=== PATIENT | male | born 1960 | race Caucasian/White ===

== ENCOUNTER → 2016-11-08 | Outpatient (CLI) | payer BC ==
--- NOTE | 2016-11-08 18:51 | CONS ---
DATE OF CONSULTATION: 11/08/2016 This patient is a 56-year-old gentleman who has been reevaluated in the sleep center for obstructive sleep apnea/hypopnea syndrome. HISTORY OF PRESENT ILLNESS/SLEEP-WAKE EVALUATION: Patient has a history of obstructive sleep apnea/hypopnea syndrome. Last time he was seen by me was in June of 2013. Patient continues to use his equipment every night. Sometimes while he using equipment he may have snoring. His usual sleep schedule on working days is from around 10 p.m. until 3:15 a.m. On weekends he sleeps until 7:30 a.m. No problem with falling asleep. He sometimes reads in bedroom. He usually sleeps on the back position. He wakes up from sleep 2 times, but no episodes of nocturia. During the day, patient sometimes may feel sleepy. [place] Sleepiness Scale is borderline at 8. He may take a nap around 4:30 p.m. Past medical history is positive for: 1. Hypertension. 2. Diabetes. 3. Hyperlipidemia. PAST SURGICAL HISTORY: Surgery for cleft palate in the past. MEDICATIONS: 1. Lisinopril hydrochlorothiazide. 2. Simvastatin. 3. Januvia. 4. Zetia. 5. Niacin. 6. Metformin. 7. Vitamin D supplement. ALLERGIES: PENICILLIN. REVIEW OF SYSTEMS: Basically negative except patient believes that he may sleep too short a time and needs to sleep more. No fevers. No double vision. No recent chest pain. No shortness of breath. No abdominal pain. No bleeding episodes. No blood in urine. No seizure episodes. SOCIAL HISTORY: Negative for smoking. Alcohol consumption occasional. FAMILY HISTORY: Hypertension, emphysema, sleep apnea, snoring, cancer, diabetes, during sleep. PHYSICAL EXAMINATION: A 56-year-old gentleman without distress. VITAL SIGNS: BP 147/82, HR 88, RR 16. Height 5 feet 7 inches. Weight 261. BMI 40.8. Neck 21 inches in circumference. Temperature 98.3. Oxygen desaturation at room air 96%. HEENT: PERRLA, EOMI. Evaluation of oropharynx showed tongue protrudes midline; extremely low position of soft palate. NECK: Supple. No JVD. Thyroid is not palpable. LUNGS: Clear to percussion and to auscultation. Good air exchange. No wheezing or rhonchi. HEART: S1, S2 regular. No murmurs, gallops or rubs. ABDOMEN: Obese. EXTREMITIES: No edema. CONTACT LENS BLOCKER AND CUTTER: Awake, alert, and oriented x3. Cranial nerves 2 to 7 intact. There is no fasciculation or atrophy noted. No focal deficits observed. I checked patient's CPAP unit. Usage for the last 6 months for more than 4 hours is 148 out of 180 nights. Average usage for that time is 5.1 hours, which is borderline but acceptable compliance. IMPRESSION: 1. Obstructive sleep apnea/hypopnea syndrome, controlled with CPAP. 2. Hypertension. 3. Obesity. 4. Status post tonsillectomy. 5. Hyperlipidemia. 6. Diabetes mellitus. 7. Status post cleft palate surgery in the past. PLAN: 1. Continue treatment with CPAP every night for the whole night. 2. Prescription for all necessary CPAP supplies, including mask, tube, filters. 3. Losing weight. Patient weighs 4 pounds more than during titration in 2013. 4. I reviewed results of the previous titration, and they are not fully satisfactory for me. Patient still has some snoring at the present time and still feels some sleepiness during the day. We will have to repeat CPAP titration. We will try to get the reading of AHI index from patient's CPAP unit. 5. Sleep hygiene with regular time in bed for at least 8 hours. 6. No driving if feeling any sleepiness. Thank you very much for allowing me to participate in the management of your patient Sincerely, Akbar Cameron MD, PhD, FAASM. Diplomat of [place] [employer], Sleep Medicine Board by [place] [employer] [place] [employer] Medicine Blasting Entry Specialist of [facility] [place]
== END | disposition home or self-care (01) ==
LOC: SLEEP 13:45
PROVIDERS: ATTEND Internal Medicine
DX: G47.33 Obstructive sleep apnea (adult) (pediatric) (principal); I10 Essential (primary) hypertension; E66.9 Obesity, unspecified; Z68.41 Body mass index [BMI] 40.0-44.9, adult; E78.5 Hyperlipidemia, unspecified; E11.9 Type 2 diabetes mellitus without complications; Z98.890 Other specified postprocedural states; Z88.0 Allergy status to penicillin; Z79.899 Other long term (current) drug therapy
CPT/HCPCS: 99211

== ENCOUNTER → 2017-11-07 | Outpatient (CLI) | payer BC ==
--- NOTE | 2017-11-07 15:03 | PN ---
PROGRESS NOTE FOLLOWUP STUDY: DATE OF SERVICE: 11/07/2017 A 57-year-old gentleman who has been followed in the Sleep Center for treatment of obstructive sleep apnea-hypopnea syndrome. Patient continued to use his CPAP equipment every night for the whole night. No snoring with the machine. No symptoms of excessive daytime sleepiness. [place] Sleepiness Scale is 9. Patient brought his machine, but he did not bring the cord, so I cannot check CPAP unit, but previously when I checked his machine, he showed very good compliance. CURRENT MEDICATIONS: Metformin, simvastatin, lisinopril, hydrochlorothiazide, Januvia, Zetia, vitamin D, niacin, baby aspirin, Aleve, cetirizine. PHYSICAL EXAM: Patient in no distress. BP 141/86, HR 74, RR 16, height 5, 7, weight 246, BMI 38.5, temperature 97.9, oxygen saturation at room air 97%. OROPHARYNX: Extremely low position of soft palate. ABDOMEN: Obese. Neck Supple, no JVD. Thyroid is not palpable. LUNGS Clear to percussion and to auscultation. Good air exchange. No wheezing or rhonchi. HEART S1, S2 regular. No murmurs, gallops, or rubs. EXTREMITIES No clubbing or cyanosis. PROJECT MANAGEMENT INSTRUCTOR Awake, alert, and oriented X3. Cranial nerves 2 to 7 intact. There is no fasciculation or atrophy. noted. No focal deficits observed. IMPRESSION: 1. Obstructive sleep apnea-hypopnea syndrome. Patient continue to use his equipment every night, benefitting from treatment. 2. Obesity. 3. Hypertension. 4. Diabetes mellitus. 5. Hyperlipidemia. 6. Status post tonsillectomy. 7. Status post cleft palate, surgical treatment in the past. PLAN: 1. Continue treatment with CPAP every night. 2. Losing weight. 3. Sleep hygiene with regular time in bed for at least 8 hours. 4. No driving if feeling sleepiness. 5. Prescription for all necessary CPAP supplies. Thank you very much for allowing me to participate in the management of your patient. Sincerely, Akbar Cameron MD, PhD, FAASM Diplomat of [place] [employer] Board of Internal Medicine Systems Analyst Engineer of [facility] [place] MMODL / IJN: [id number] /
== END | disposition home or self-care (01) ==
LOC: SLEEP 13:38
PROVIDERS: ATTEND Internal Medicine
DX: G47.33 Obstructive sleep apnea (adult) (pediatric) (principal); I10 Essential (primary) hypertension; E11.9 Type 2 diabetes mellitus without complications; E78.5 Hyperlipidemia, unspecified; E66.9 Obesity, unspecified; Z79.84 Long term (current) use of oral hypoglycemic drugs; Z79.899 Other long term (current) drug therapy; Z79.82 Long term (current) use of aspirin; Z99.89 Dependence on other enabling machines and devices; Z87.730 Personal history of (corrected) cleft lip and palate; Z90.89 Acquired absence of other organs; Z98.890 Other specified postprocedural states; Z68.38 Body mass index [BMI] 38.0-38.9, adult

== ENCOUNTER → 2018-04-07 | Outpatient (CLI) | payer BC ==
[2018-04-07 10:33] LABS: Anion Gap 9 mmol/L; Blood Urea Nitrogen 17 mg/dL (9-20); Carbon Dioxide 28 mmol/L (22-30); Chloride 102 mmol/L (98-107); Potassium 4.2 mmol/L (3.5-5.1); Sodium 139 mmol/L (137-145)
[2018-04-07 18:57] LABS: Hemoglobin A1C 6.2 % (4.0-6.0)
== END | disposition home or self-care (01) ==
LOC: LABWHC1 09:17
PROVIDERS: ATTEND Family Medicine
DX: E11.9 Type 2 diabetes mellitus without complications (principal); I10 Essential (primary) hypertension
CPT/HCPCS: 36415; 80051; 82565; 83036; 84520

== ENCOUNTER → 2018-05-01 | Outpatient (CLI) | payer BC ==
--- NOTE | 2018-05-01 14:52 | PN ---
PROGRESS NOTE DATE OF SERVICE: 05/01/2018 57-year-old gentleman who has been followed in Sleep Center for treatment of obstructive sleep apnea-hypopnea syndrome. The patient continued to use his CPAP equipment every night. Sometimes it is not good schedule for sleep because he starts his job early and he sleeps until 330 in the morning. He tried to go to bed at 9:00 pm but usually goes to bed around 10 or 11 pm. I checked his CPAP unit. CPAP pressure in the range of 5-16 on automatic regimen. The patient using it 26 out of 30 nights for more than 4 hours. Average usage 5.7 hours. [place] Sleepiness Scale today 6, which is in normal range. MEDICATIONS: Metformin, simvastatin, lisinopril, hydrochlorothiazide, Januvia, Zetia, vitamin D, Niacin, baby aspirin, Aleve, Sertraline. PHYSICAL EXAM: Patient in no distress. BP 146/89, HR 90, RR 16, height 67, weight 245.2, BMI 28.3, temperature 98.5. Weight is 1 pounds less than during last visit. Oropharynx: Extremely low position of soft palate. ABDOMEN: Obese. Neck Supple, no JVD. Thyroid is not palpable. LUNGS Clear to percussion and to auscultation. Good air exchange. No wheezing or rhonchi. HEART S1, S2 regular. No murmurs, gallops, or rubs. ABDOMEN: Obese. Soft and nontender. Bowel sounds are present. No organomegaly appreciated. EXTREMITIES No clubbing or cyanosis. POLLUTION CONTROL ENGINEER Awake, alert, and oriented X3. Cranial nerves 2 to 7 intact. There is no fasciculation or atrophy. noted. No focal deficits observed. IMPRESSION: 1. Obstructive sleep apnea-hypopnea syndrome. Patient demonstrated great compliance with treatment benefitting from treatment. 2. Obesity, BMI 38.3. 3. Hypertension. 4. Diabetes mellitus. 5. Hyperlipidemia. 6. Status post tonsillectomy. 7. 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 PLAN: 1. Continue treatment with CPAP every night for the whole night. 2. Replace CPAP unit to the new unit which will indicate apnea-hypopnea index. 3. Losing weight. 4. Sleep hygiene with regular time in bed for at least 8 hours. 5. No driving if feeling sleepiness. Thank you very much for allowing me to participate in management of your patient. Sincerely, Akbar Stefadu, MD, PhD, FAASM Diplomat of [employer] Board of Internal Medicine Chief Of Party of [facility] [place] MMKEELY / LILLIANA: [id number] /
== END | disposition home or self-care (01) ==
LOC: SLEEP 13:41
PROVIDERS: ATTEND Internal Medicine
DX: G47.33 Obstructive sleep apnea (adult) (pediatric) (principal); I10 Essential (primary) hypertension; E11.9 Type 2 diabetes mellitus without complications; E78.5 Hyperlipidemia, unspecified; Z99.89 Dependence on other enabling machines and devices; Z79.84 Long term (current) use of oral hypoglycemic drugs; Z79.899 Other long term (current) drug therapy; Z79.82 Long term (current) use of aspirin; Z79.1 Long term (current) use of non-steroidal anti-inflammatories (NSAID); E66.9 Obesity, unspecified; Z68.38 Body mass index [BMI] 38.0-38.9, adult; Z90.89 Acquired absence of other organs; Z87.730 Personal history of (corrected) cleft lip and palate; Z98.890 Other specified postprocedural states

== ENCOUNTER → 2018-07-05 | Outpatient (CLI) | payer BC ==
[2018-07-05 09:45] LABS: ALT 46 U/L (21-72); AST 35 U/L (17-59); Albumin 4.1 g/dL (3.5-5.0); Alkaline Phosphatase 42 U/L (38-126); Anion Gap 9 mmol/L; Blood Urea Nitrogen 14 mg/dL (9-20); Calcium 9.3 mg/dL (8.4-10.2); Carbon Dioxide 30 mmol/L (22-30); Chloride 101 mmol/L (98-107); Cholesterol 111 mg/dL (<200); Glucose 114 mg/dL (74-99); HDL Cholesterol 38 mg/dL (40-60); LDL Cholesterol,Calculated 53 mg/dL (0-99); Potassium 4.6 mmol/L (3.5-5.1); Sodium 140 mmol/L (137-145); Total Bilirubin 0.7 mg/dL (0.2-1.3); Total Protein 6.7 g/dL (6.3-8.2); Triglycerides 101 mg/dL (<150)
[2018-07-05 17:49] LABS: Hemoglobin A1C 6.1 % (4.0-6.0)
== END | disposition home or self-care (01) ==
LOC: LABWHC1 08:53
PROVIDERS: ATTEND Family Medicine
DX: E11.9 Type 2 diabetes mellitus without complications (principal); I10 Essential (primary) hypertension
CPT/HCPCS: 36415; 80053; 80061; 83036

== ENCOUNTER → 2018-09-04 | Outpatient (CLI) | payer BC ==
--- NOTE | 2018-09-04 15:10 | SFUN ---
SLEEP CENTER FOLLOW UP NOTE DATE OF SERVICE: 09/04/2018 A 57-year-old gentleman who has been followed in the Sleep Center for treatment of obstructive sleep apnea-hypopnea syndrome. Recently patient received his new CPAP unit. He likes his CPAP machine. He is able to use it every night for the whole night without significant problem, except sometimes he feels dryness in the mouth. I checked CPAP unit, range of the pressure 5-16 cm of water, most of the time pressure is 15.5 cm of water. Usage is every night and 25/30 nights more than 4 hours, average 5.5 hours per night. Leak is 14 L per minute, which is normal range for the full-face mask. Apnea-hypopnea index 4.6, which is normal range. Humidity at the range of 3 with a maximal option up to 8. [place] Sleepiness Scale today is 3. MEDICATIONS: Metformin, simvastatin, lisinopril, hydrochlorothiazide, Januvia, Zetia, vitamin D, Niacin, baby aspirin, Aleve, Sertraline. PHYSICAL EXAM: Patient in no distress. BP 121/71, HR 88, RR 16, weight 252, which is 7 pounds above the previous weight about 4 months ago, temperature 97.6, oxygen saturation room air 95%. OROPHARYNX: Extremely low position of soft palate. ABDOMEN: Obese. Neck Supple, no JVD. Thyroid is not palpable. LUNGS Clear to percussion and to auscultation. Good air exchange. No wheezing or rhonchi. HEART S1, S2 regular. No murmurs, gallops, or rubs. EXTREMITIES No clubbing or cyanosis. MEDICAL OFFICE WORKER Awake, alert, and oriented X3. Cranial nerves 2 to 7 intact. There is no fasciculation or atrophy. noted. No focal deficits observed. IMPRESSION: 1. Obstructive sleep apnea-hypopnea syndrome. Patient demonstrated great compliance with treatment benefitting from treatment. 2. Obesity. 3. Hypertension. 4. Diabetes mellitus. 5. Hyperlipidemia. 6. Status post tonsillectomy. 7. Status post surgical treatment for cleft palate in rotoprinter. PLAN: 1. Patient will continue to use CPAP equipment every night for the whole night. 2. I increased humidity up to level 5. 3. Losing weight. 4. Sleep hygiene with regular time in bed for at least 8 hours. 5. No driving if feeling any sleepiness. 6. Will maintain prescription for all necessary CPAP supplies including full-face mask, tube, filters. 7. Followup visit in 1 year or earlier if patient has any problems. Thank you very much for allowing me to participate in the management of your patient. Sincerely, Akbar Cameron MD, PhD, FAASM Diplomat of [place] [employer] Specialties [place] Board of Internal Medicine Information Manager of [facility] [place] MMODL / IJN: [id number] /
== END ==
LOC: SLEEP 13:32
PROVIDERS: ATTEND Internal Medicine
DX: G47.33 Obstructive sleep apnea (adult) (pediatric) (principal); E66.9 Obesity, unspecified; I10 Essential (primary) hypertension; E11.9 Type 2 diabetes mellitus without complications; E78.5 Hyperlipidemia, unspecified; Z90.89 Acquired absence of other organs; Z98.890 Other specified postprocedural states; Z99.89 Dependence on other enabling machines and devices; Z79.899 Other long term (current) drug therapy; Z79.84 Long term (current) use of oral hypoglycemic drugs; Z79.82 Long term (current) use of aspirin

== ENCOUNTER → 2018-11-10 | Outpatient (CLI) | payer BC ==
[2018-11-10 22:01] LABS: Potassium 3.7 mmol/L (3.5-5.5)
[2018-11-10 22:55] LABS: Hemoglobin A1C 6.7 % (4.0-6.0)
== END | disposition home or self-care (01) ==
LOC: LABWHC1 13:45
PROVIDERS: ATTEND Family Medicine
DX: I10 Essential (primary) hypertension (principal); Z79.899 Other long term (current) drug therapy
CPT/HCPCS: 36415; 80051; 82565; 83036; 84443; 84520; 85652

== ENCOUNTER → 2018-12-03 | Outpatient (CLI) | payer BC ==
[2018-12-03 11:24] LABS: Basophils # (A) 0.1 k/uL (0-0.2); Basophils % (A) 1 %; Eosinophils # (A) 0.1 k/uL (0-0.7); Eosinophils % (A) 1 %; HCT 46.3 % (39.0-53.0); HGB 15.2 gm/dL (13.0-17.5); Lymphocytes % (A) 26 %; MCH 29.8 pg (25.0-35.0); MCHC 32.8 g/dL (31.0-37.0); Monocytes # (A) 0.4 k/uL (0-1.0); Monocytes % (A) 5 %; Neutrophils # (A) 4.9 k/uL (1.3-7.7); Neutrophils % (A) 64 %; Platelet Count 216 k/uL (150-450); RBC 5.08 m/uL (4.30-5.90); RDW 13.7 % (11.5-15.5); WBC 7.6 k/uL (3.8-10.6)
[2018-12-03 11:26] LABS: INR 0.9 (<1.2); Prothrombin Time 9.6 sec (9.0-12.0)
[2018-12-03 11:42] LABS: Potassium 4.4 mmol/L (3.5-5.1)
== END | disposition home or self-care (01) ==
LOC: LABPAT 10:24
PROVIDERS: ATTEND Orthopaedic Surgery
DX: Z01.812 Encounter for preprocedural laboratory examination (principal); Z88.0 Allergy status to penicillin
CPT/HCPCS: 36415; 80051; 85025; 85610

== ENCOUNTER → 2018-12-05 | Outpatient (CLI) | payer BC ==
[~2018-12-05] MED LIST: REGADENOSON 0.4 MG/5 ML SYRINGE IV ONE
--- NOTE | 2018-12-05 11:36 | NM ---
EXAMINATION TYPE: NM stress lexiscan cardiolite DATE OF EXAM: 12/05/2018 COMPARISON: NONE HISTORY: Abnormal EKG TECHNIQUE: After the intravenous administration of 10.8 mCi Tc 99m Sestamibi - Cardiolite resting SP ECT images acquired 50 minutes post injection. The patient received 0.4mg Lexiscan, 25.4 mCi Tc 99m Sestamibi - Stress images obtained [address] injection FINDINGS: Review of stress and rest SPECT images demonstrates no distinct perfusion abnormality. Gated analysi s shows normal wall motion with an estimated left ventricular ejection fraction of 42 %. IMPRESSION: Ejection fraction is 42% correlate clinically No scintigraphic evidence for reversible ischemia.
--- NOTE | 2018-12-05 13:49 | EST ---
EXERCISE STRESS DATE OF SERVICE: 12/05/2018 AGE: 58 SEX: Male HT: 66" WT: 250 PROTOCOL: Lexiscan Cardiolite STAGE: DURATION OF EXERCISE: HEART RATE REST: 66 BLOOD PRESSURE REST: 139/85 MAXIMUM HEART RATE ACHIEVED: 103 MAXIMUM BLOOD PRESSURE: 150/77 85% MPHR: 138 100% MPHR: 162 METS: INDICATIONS: Abnormal EKG, pre-op. CLINICAL INFORMATION: STRESS DATA: Pre-testing physical examination showed heart rate of 66, pressure is 139/85 mmHg. Baseline EKG showed sinus mechanism. A 0.4 mg of Lexiscan given over 15 seconds. Max heart rate sdp074 beats per minute. Maximum pressure was 150/77 mmHg. Clinically the patient did not have any symptoms and the EKG did not show any significant ST or T-wave abnormalities concerning for ischemia. CONCLUSION: 1. Nondiagnostic electrocardiogram stress testing in response to Lexiscan. 2. Please follow up on the Cardiolite portion on separate report from radiology department. MMODL / IJN: [id number] /
== END | disposition home or self-care (01) ==
LOC: RADNMMAIN 07:55
PROVIDERS: ATTEND Family Medicine
DX: R94.31 Abnormal electrocardiogram [ECG] [EKG] (principal)
CPT/HCPCS: 93017; 78452; A9500; J2785

== ENCOUNTER → 2018-12-16 | Outpatient (CLI) | payer BC | END | disposition home or self-care (01) | LOC: LABPAT 11:52 | PROVIDERS: ATTEND Orthopaedic Surgery | DX: Z01.812 Encounter for preprocedural laboratory examination (principal); M16.11 Unilateral primary osteoarthritis, right hip | CPT/HCPCS: 87070 ==

== ENCOUNTER → 2018-12-17 | Outpatient (CLI) | payer BC ==
--- NOTE | 2018-12-18 09:40 | ECHOF ---
Referral Reason:I50.9 Low ejection fraction MEASUREMENTS -------- HEIGHT: 170.2 cm WEIGHT: 113.4 kg BP: RVIDd: 3.0 cm (< 3.3) IVSd: 1.5 cm (0.6 - 1.1) LVIDd: 4.3 cm (3.9 - 5.3) LVPWd: 1.3 cm (0.6 - 1.1) IVSs: 1.5 cm LVIDs: 3.5 cm LVPWs: 1.4 cm LAESV Index (A-L): 22.50 ml/m Ao Diam: 3.5 cm (2.0 - 3.7) AV Cusp: 2.5 cm (1.5 - 2.6) LA Diam: 3.3 cm (2.7 - 3.8) MV EXCURSION: 20.824 mm (> 18.000) MV EF SLOPE: 96 mm/s (70 - 150) EPSS: 0.3 cm MV E Chai: 0.62 m/s MV DecT: 309 ms MV A Chai: 0.59 m/s MV E/A Ratio: 1.06 RAP: 5.00 mmHg RVSP: 17.25 mmHg FINDINGS -------- Sinus rhythm. This was a technically adequate study. The left ventricular size is normal. There is moderate concentric left ventricular hypertrophy. O verall left ventricular systolic function is normal with, an EF between 55 - 60 %. The right ventricle is normal in size. The left atrial size is normal. The right atrial size is normal. The aortic valve is trileaflet, and appears structurally normal. No aortic stenosis or regurgitation. Mild mitral annular calcification present. Mild mitral regurgitation is present. Mild tricuspid regurgitation present. There is no evidence of pulmonary hypertension. The right v entricular systolic pressure, as measured by Doppler, is 17.25mmHg. Trace/mild (physiologic) pulmonic regurgitation. The aortic root size is normal. There is no pericardial effusion. CONCLUSIONS -------- 1. The left ventricular size is normal. 2. There is moderate concentric left ventricular hypertrophy. 3. Overall left ventricular systolic function is normal with, an EF between 55 - 60 %. 4. The right ventricle is normal in size. 5. The left atrial size is normal. 6. The right atrial size is normal. 7. The aortic valve is trileaflet, and appears structurally normal. No aortic stenosis or regurgitati on. 8. Mild mitral annular calcification present. 9. Mild mitral regurgitation is present. 10. Mild tricuspid regurgitation present. 11. There is no evidence of pulmonary hypertension. 12. The right ventricular systolic pressure, as measured by Doppler, is 17.25mmHg. 13. Trace/mild (physiologic) pulmonic regurgitation. 14. The aortic root size is normal. 15. There is no pericardial effusion. ANATOMY AND PHYSIOLOGY INSTRUCTOR: Poonam Chamorro RDCS
== END | disposition home or self-care (01) ==
LOC: RADECHMAIN 13:38
PROVIDERS: ATTEND Family Medicine
DX: I08.1 Rheumatic disorders of both mitral and tricuspid valves (principal); I50.20 Unspecified systolic (congestive) heart failure
CPT/HCPCS: 93306

== ENCOUNTER 2018-12-29 08:45 | Inpatient (IN) | payer BC ==
[2018-12-23 15:57] VITALS: BMI 40.3
--- NOTE | 2018-12-28 18:10 | HP ---
HISTORY AND PHYSICAL REASON FOR ADMISSION: Surgery scheduled for 12/29/2018 HISTORY OF PRESENT ILLNESS: Abilio Guerrero is a 58-year-old patient seen with symptomatic right hip osteoarthritis. After treatment options were discussed with him, he elected to proceed with right total hip arthroplasty. Consent regarding the procedure was obtained. Medical clearance was provided by Dr. Star Carmona. PAST MEDICAL HISTORY: Tfq-wafdwog-nvcprfger diabetes, hypertension, hyperlipidemia. PAST SURGICAL HISTORY: Herniorrhaphy, cleft palate surgery. MEDICATIONS: Januvia, lisinopril/hydrochlorothiazide, metformin, simvastatin. ALLERGIES: PENICILLIN. SOCIAL HISTORY: He denies current tobacco use. PHYSICAL EXAMINATION: Evaluation of the right hip: He has diffuse tenderness about the hip girdle. Limited range of motion with significant pain. Positive hip impingement sign. Straight leg raise is negative. Distal neurovascular exam is intact. RADIOGRAPHS: Radiographs of the right hip revealed severe osteoarthritic change. IMPRESSION: 1. Right hip osteoarthritis. 2. Hypertension. 3. Hyperlipidemia. 4. Iqy-bpucqie-ovpgzgfsl diabetes. PLAN: Direct anterior right total hip arthroplasty. Surgery 12/29/2018. MMODL / IJN: [id number] /
[~2018-12-29 08:45] MED LIST changes: +ACETAMINOPHEN TAB 500 MG TAB PO ONE; +CLINDAMYCIN 900 MG in DEXTROSE 5% IN WATER 50 ML IVPB ONE; +DEXAMETHASONE SOD PHOSPHATE 10 MG/ML 1 ML VIAL IV ONE; +HYDROmorphone 0.5 MG/0.5 ML SYRINGE IVP PRN; +MELOXICAM 7.5 MG TAB PO ONE; +MIDAZOLAM (PF) 2 MG/2 ML VIAL IV PRN; +ONDANSETRON 4 MG/2 ML VIAL IVP ONE; -REGADENOSON 0.4 MG/5 ML SYRINGE IV ONE; +SCOPOLAMINE 1.5MG/72HR PATCH TRANSDERM ONE; +TRANEXAMIC ACID 1,000 MG in SODIUM CHLORIDE 0.9% 100 ML IVPB ONE
[2018-12-29] MEDS ORDERED: ROPIVACAINE 246.25 MG, EPINEPHrine 0.5 MG, KETOROLAC 30 MG, cloNIDine HCL/PF 80 MCG, WA... MISCELLANE ONE ×5 (09:10)
[2018-12-29] MEDS: LACTATED RINGERS 1,000 ML IV SCH ×2 (09:29→19:24)
[2018-12-29 09:31] LABS: Glucose,Whole Blood 127 mg/dL (75-99)
[2018-12-29] MEDS ORDERED: MIDAZOLAM 2 MG/2 ML VIAL ONE (10:18)
[2018-12-29] MEDS ORDERED: PROPOFOL 10 MG/ML 20 ML VIAL IV ONE (10:18)
[2018-12-29] MEDS ORDERED: fentaNYL (PF) 50 MCG/ML 2 ML AMP ONE (10:18)
[2018-12-29] MEDS ORDERED: TRANEXAMIC ACID 1,000 MG/10 ML VIAL ONE (10:18)
[2018-12-29] MEDS ORDERED: SODIUM CHLORIDE 0.9% 100 ML BAG ONE (10:18)
[2018-12-29] MEDS ORDERED: CLINDAMYCIN 1,800 MG in SODIUM CHLORIDE 0.9% IRRIGATIO 3,000 ML IRRIGATION ONE (11:11)
[2018-12-29] MEDS ORDERED: HYDROmorphone 1 MG/ML 1 ML SYRINGE IVP PRN (11:18)
[2018-12-29] MEDS ORDERED: traMADol 50 MG TAB PO PRN (11:18)
[2018-12-29] MEDS ORDERED: HYDROmorphone 0.5 MG/0.5 ML SYRINGE IVP PRN (11:18)
[2018-12-29] MEDS ORDERED: ONDANSETRON 4 MG/2 ML VIAL IVP PRN (11:18)
[2018-12-29] MEDS ORDERED: ACETAMINOPHEN TAB 325 MG TAB PO PRN (11:18)
[2018-12-29] MEDS ORDERED: NALOXONE 0.4 MG/ML 1 ML VIAL IV PRN (11:18)
[2018-12-29] MEDS ORDERED: HYDROcodone/APAP 7.5-325MG 1 EACH TAB PO PRN (11:18)
[2018-12-29] MEDS ORDERED: MAGNESIUM HYDROXIDE 2,400 MG/10 ML CUP PO PRN (11:18)
--- NOTE | 2018-12-29 13:18 | P.OP ---
Date of Procedure: 12/29/18 Preoperative Diagnosis: Right hip osteoarthritis Postoperative Diagnosis: Same Procedure(s) Performed: Direct anterior right total hip arthroplasty Implants: 1. Depuy Corail KA size a standard collar press-fit femoral stem 2. Depuy pinnacle 54 mm press-fit acetabular shell 3. Depuy pinnacle polyethylene acetabular liner neutral 36 mm ID 54 mm OD 4. Biolox delta ceramic femoral head plus 1.5 36 millimeter Anesthesia: local, spinal Surgeon: Ashu Alva Estimated Blood Loss (ml): 150 Pathology: other (Femoral head) Condition: stable Disposition: PACU Indications for Procedure: 58-year-old patient seen with enzymatic right hip osteoarthritis. After treatment options were discussed, he elected to proceed with total hip arthroplasty Operative Findings: see description of procedure Description of Procedure: The patient was taken to the operative suite. Patient underwent a spinal anesthetic by the department of anesthesia. Patient was then transferred to the [place] table. Patient was given preoperative IV antibiotics and TXA. Both lower extremities were placed in standard leg spars. The hip was then prepped and draped in the normal sterile orthopedic fashion. A standard anterior incision was made beginning 3 cm lateral and 1 cm distal to the ASIS extending 10 cm. Dissection was then carried down through the subcutaneous soft tissues down to the fascia overlying the tensor fascia josé manuel. An incision was now made through the fascia. Careful dissection was taken down exposing the tensor fascia josé manuel muscle. A Cobra retractor was now placed along the medial femoral neck and a second one along the lateral femoral neck. The venous circumflex vessels were now identified, cauterized and clipped. We identified the anterior hip capsule. An incision was made through the hip capsule along the lateral border. I performed a partial anterior capsulectomy. Retractors were now placed around the femoral neck itself. A femoral neck cut was now made with a sagittal saw. I t was completed with an osteotome at the lateral neck area. The femoral head was now removed without difficulty. The extremity was now rotated to 45 of external rotation. It was locked in position. Residual labrum was now debrided out. Serial reaming was performed of the acetabulum while the research study assistant assisted holding an anterior retractor for exposure. Once we reached the appropriate size and a trial was position and fit nicely. The appropriate size was now chosen opened and made available. It was introduced into the acetabulum without difficulty. The C-arm/fluoroscopy was now brought into the operative field. We made sure we had a true AP pelvic view. We now under direct C- arm/fluoroscopy introduced into the acetabular component with appropriate version and inclination. I held the cup in appropriate position while my research study assistant used a mallet to seat the acetabular component. I noted the component now to be well seated and stable. Acetabular cup introduce her was removed. The C-arm was pulled back. An appropriate liner was introduced and clicked into position. It was felt to be stable. At this point retractors were removed. The extremity was now placed into 120 external rotation with no traction. The leg was now dropped to the ground and adducted. Appropriate retractors were now positioned along the proximal femur. We also placed our femoral look into po sition. Additional capsular releasing was performed to gain access to the proximal femur. We now used a box osteotome. A canal finder was now utilized. We noted a very tight intramedullary canal. I now introduced a guidewire with ball-tip down the intramedullary canal. I began with my 8 reamer and cemented down the canal. The reamer head audibly snapped and broke. When I tried to pull the reamer head out the ball-tipped guidewire slid breakthrough. The reamer head now was lodged in the intramedullary canal distally. I used thin osteotomes along with a bur and multiple instruments to try to retrieve the broken tip of the reamer. I could not retrieve it. At this point decided to simply leave it in the intramedullary canal. Serial broaching was now performed with the assistance of my research study assistant tapping the broaches down with a mallet while held the broach in appropriate rotation and position. This was done with a size 8 broach which seemed to have good rotational stability. I was worried about going to a larger size for fear of getting caught distally with that broken reamer head. Appropriate calcar planing was performed. A trial head/neck was placed into position. The femoral broach again seemed very stable. The hip was now reduced. The C-arm/fluoroscopy was brought back into the operative field. A spot film was obtained of the nonoperative hip. A spot film was obtained of the trial components. Overlays were performed, we noted good overall alignment and positioning for determining leg length. The C- arm/fluoroscopy was pulled back. Retractors were repositioned and the hip was dislocated. The leg was again taken down to the ground and adducted. Appropriate retractors were repositioned as well as the femoral hook. All trial components were removed. The femoral implant was opened along with the femoral head. The femoral implant was introduced on the appropriate handle into our pre-broached area. I held the component position while my research study assistant used a mallet to seat the femoral component. The femoral component was now noted to be well seated and stable.. The femoral head was introduced with good positioning and fixation noted. Retractors were now removed. The hip was now reduced. There appeared be good positioning of the hip confirmed on intraoperative fluoroscopy. Spot films were obtained to document this. A second gram of TXA was given. The deep and superficial soft tissues were infiltrated with local analgesic. Bipolar cautery had been utilized intermittently through the procedure for hemostasis. The wound was irrigated copiously with pulse lavage mechanical irrigation. The fascia was repaired with Vicryl suture. The subcutaneous soft tissues were repaired in layers with Vicryl suture. The skin was approximated with pernio/Dermabond. Sterile dressings were applied. Patient was then awakened, transferred to a bed and taken to recovery in stable condition.
--- NOTE | 2018-12-29 13:25 | FL ---
Fluoroscopy HISTORY: Hip replacement 49 seconds fluoroscopy time supplied to the referring clinician. 2 intraoperative C-arm images docum ent the procedure. See dictated report from orthopedic surgery.
[2018-12-29] MEDS ORDERED: LACTATED RINGERS 1,000 ML IV ONE (13:26)
--- NOTE | 2018-12-29 13:26 | XR ---
Limited right hip HISTORY: Hip replacement 2 intraoperative C-arm images document the procedure.
[2018-12-29 13:54] LABS: Glucose,Whole Blood 177 mg/dL (75-99)
[2018-12-29] MEDS: metFORMIN 500 MG TAB PO STA ×2 (17:01→18:05)
[2018-12-29] MEDS: CLINDAMYCIN 900 MG in DEXTROSE 5% IN WATER 50 ML IVPB SCH ×2 (19:24)
[2018-12-29 20:01] LABS: Glucose,Whole Blood 279 mg/dL (75-99)
[2018-12-29] MEDS ORDERED: NIACIN TR 500 MG CAPLET PO SCH (21:00)
[2018-12-29] MEDS ORDERED: SENNOSIDES-DOCUSATE SODIUM 1 EACH TAB PO SCH (21:00)
[2018-12-29] MEDS: metFORMIN 500 MG TAB PO SCH (21:02)
[2018-12-29] MEDS: INSULIN ASPART (NovoLOG) 100 UNIT/ML VIAL SQ SCH (21:04)
[2018-12-30] MEDS: CLINDAMYCIN 900 MG in DEXTROSE 5% IN WATER 50 ML IVPB SCH ×2 (01:32)
[2018-12-30 02:19] VITALS: PULSE 83
[2018-12-30 07:19] LABS: Glucose,Whole Blood 121 mg/dL (75-99)
[2018-12-30 07:54] VITALS: BP 132/82; RESP 14; TEMP 97.6
[2018-12-30] MEDS: metFORMIN 500 MG TAB PO SCH (07:55)
[2018-12-30] MEDS: HYDROcodone/APAP 7.5-325MG 1 EACH TAB PO PRN ×2 (07:55→14:59)
[2018-12-30] MEDS: INSULIN ASPART (NovoLOG) 100 UNIT/ML VIAL SQ SCH ×2 (07:56→12:43)
[2018-12-30 08:21] LABS: Basophils % (A) 0 %; Eosinophils # (A) 0.1 k/uL (0-0.7); Eosinophils % (A) 1 %; HCT 34.3 % (39.0-53.0); Lymphocytes # (A) 1.6 k/uL (1.0-4.8); Lymphocytes % (A) 19 %; MCH 30.1 pg (25.0-35.0); MCHC 33.8 g/dL (31.0-37.0); MCV 89.3 fL (80.0-100.0); Mean Platelet Volume 7.2; Monocytes # (A) 0.6 k/uL (0-1.0); Monocytes % (A) 7 %; Neutrophils # (A) 6.1 k/uL (1.3-7.7); Neutrophils % (A) 72 %; Platelet Count 185 k/uL (150-450); RBC 3.84 m/uL (4.30-5.90); RDW 13.9 % (11.5-15.5); WBC 8.4 k/uL (3.8-10.6)
[2018-12-30 08:30] LABS: HGB 11.6 gm/dL (13.0-17.5)
[2018-12-30] MEDS ORDERED: LINAGLIPTIN 5 MG TABLET PO SCH (09:00)
[2018-12-30] MEDS ORDERED: ASPIRIN 325 MG TAB PO SCH (09:00)
[2018-12-30] MEDS ORDERED: LISINOPRIL-HCTZ 20-25 MG 1 EACH TAB PO SCH (09:00)
[2018-12-30] MEDS ORDERED: ENOXAPARIN 40 MG/0.4 ML SYRINGE SQ SCH (09:00)
[2018-12-30] MEDS ORDERED: EZETIMIBE 10 MG TAB PO SCH (09:00)
[2018-12-30] MEDS ORDERED: ATORVASTATIN 10 MG TAB PO SCH (09:00)
[2018-12-30] MEDS ORDERED: FAMOTIDINE 20 MG TAB PO SCH (09:00)
[2018-12-30 11:57] LABS: Glucose,Whole Blood 168 mg/dL (75-99)
--- NOTE | 2018-12-30 12:36 | P.PN ---
Subjective Progress Note Date: 12/30/18 Principal diagnosis: Status post right total hip arthroplasty direct anterior approach Patient evaluated at bedside today, he is resting comfortably. He's been ambulating well with physical therapy with use of walker. He denies any acute pain at this time. He denies any chest pain or shortness of breath. Objective - Vital Signs Vital signs: Vital Signs Temp 97.6 F 12/30/18 07:00 Pulse 83 12/30/18 07:00 Resp 14 12/30/18 07:40 BP 132/82 12/30/18 07:00 Pulse Ox 97 12/30/18 07:00 Intake & Output 12/29/18 12/30/18 12/30/18 18:59 06:59 18:59 Intake Total 1807 550 Output Total 150 Balance 1657 550 Intake: IV 1807 Intake, IV Titration 550 Amount Clindamycin 900 mg In 50 Dextrose 5% in Water 50 ml @ 50 mls/hr IVPB Q8H [facility] Rx#:[id number] Lactated Ringers 1,000 ml 500 @ 50 mls/hr IV .Q20H [facility]UAD Rx#:[id number] Output: Estimated Blood Loss 150 Other: Voiding Method Toilet # Voids 2 - Exam Right lower extremity: Incision is clean, dry, and intact. The exofin fusion tape is in good condition. There is minimal soft tissue swelling and ecchymosis surrounding the medial and lateral aspects of the incision. Calf is soft, no tenderness with palpation. Plantar flexion, dorsiflexion, EHL, FHL are intact. Sensory exam to light touch throughout the extremity is intact, dorsal pedis pulses 2+. - Labs CBC & Chem 7: 12/30/18 07:17 Labs: Abnormal Lab Results - Last 24 Hours (Table) 12/29/18 12/29/18 12/30/18 Range/Units 13:49 19:59 07:16 RBC (4.30-5.90) m/uL Hgb (13.0-17.5) gm/dL Hct (39.0-53.0) % POC Glucose (mg/dL) 177 H 279 H 121 H (75-99) mg/dL 12/30/18 12/30/18 Range/Units 07:17 11:36 RBC 3.84 L (4.30-5.90) m/uL Hgb 11.6 L D (13.0-17.5) gm/dL Hct 34.3 L (39.0-53.0) % POC Glucose (mg/dL) 168 H (75-99) mg/dL Assessment and Plan Plan: Assessment: Postoperative day 1 status post direct anterior right total hip arthroplasty Plan: Pain control, plan for discharge on oral medication GI and DVT prophylaxis, aspirin 325 mg twice a day Wound care instructions discussed Home therapy and nursing after discharge Medical recommendations Plan for discharge home today Time with Patient: Less than 30
--- NOTE | 2018-12-30 12:42 | P.DS ---
Providers Date of admission: 12/29/18 08:45 Expected date of discharge: 12/30/18 Attending physician: Ashu Alva Consults: 12/29/18 11:28 Consult Physician Routine Consulting Provider: Star Carmona Reason/Comments: Medical Management Do you want consulting provider notified?: Yes Primary care physician: Star Carmona [facility] Course: Date of admission: 12/29/2018 Date of discharge: 12/30/2018 Admission diagnosis: Status post direct anterior right total hip arthroplasty Discharge diagnosis: Same Attending physician: Dr. Alva Surgical procedures: Direct anterior right total hip arthroplasty Brief history: Patient is a 58-year-old male with a history of progressive primary right hip osteoarthritis. At this point patient has failed conservative treatment measures and has opted to proceed with a elective right total hip arthroplasty. Hospital course: Details of patient's surgery can be found in operative report. Patient tolerated the procedure well and was subsequently transported to orthopedic floor. Patient's orthopeidc and medical care was provided daily. Patient had daily laboratory tests performed for evaluation of overall blood c ounts. Patient had daily physical therapy to include strengthening range of motion as well as education with walker ambulation. Patient was treated with Lovenox for their postoperative DVT prophylaxis during their inpatient stay. Patient was noted to have a relatively uneventful postoperative course. Patient reported satisfactory pain control with oral pain medications by postoperative day 0. Patient showed satisfactory progress with physical therapy. Patient moved steadily through the program and had no difficulty meeting the goals by postoperative day 1. Given patient's otherwise satisfactory course and having met physical therapy goals, plan is to discharge patient home on postoperative day 1. Discharge condition/disposition: Patient will be discharged home in stable condition. Discharge medications: Instructions are given on resumption of patient's normal daily medications per primary care recommendation, in addition patient will be prescribed [place] 7.5 mg/325 mg, Colace 100 mg, aspirin 325 mg,. Discharge instructions: 1. Wound care and infection precautions, keep incision dry and covered while showering, no lotions, creams, moisturizers. No soaking, tubs, pools, hottubs. Do not scrub over the incision. 2. Weight-bear as tolerated with walker / cane until follow-up. 3. Ice and elevate when necessary. Do not exceed 20 minutes per hour with ice pack. 4. Utilize compression sleeve until seen at first follow up appointment. 5. Visiting nursing care. 6. Home physical therapy. 7. Pain meds and anticoagulants per prescription. 8. Pain medication has potential to cause constipation. Increase oral fluid and fiber intake. Contact primary care provider if you have not had a bowel movement within 48 hours after discharge 9. No anti-inflammatory medication until discussed at first post operative visit, this including Motrin, Aleve, Mobic, Diclofenac,. 10. Follow up in office at 2 weeks postop with Herbie Senior PA-C 11. Follow up with your primary care doctor 7-10 days after discharge. 12. Contact [facility] with any questions, . Procedures: Direct anterior right total hip arthroplasty Patient Condition at Discharge: Good Plan - Discharge Summary Discharge Rx Participant: No New Discharge Prescriptions: New Aspirin 325 mg PO BID #60 tab Docusate [Colace] 100 mg PO DAILY #30 capsule HYDROcodone/APAP 7.5-325MG [[place] 7.5] 1 - 2 each PO Q6HR PRN #56 tab PRN Reason: Pain No Action sitaGLIPtin [Januvia] 100 mg PO DAILY metFORMIN HCL [Glucophage] 500 mg PO BID Lisinopril-Hctz 20-25 mg [Zestoretic 20-25] 2 tab PO DAILY Ezetimibe [Zetia] 10 mg PO DAILY Simvastatin [Zocor] 20 mg PO DAILY Niacin [Niacin ER] 500 mg PO HS Ergocalciferol (Vitamin D2) [Vitamin D2] 50,000 unit PO KUNZ Discharge Medication List Ergocalciferol (Vitamin D2) [Vitamin D2] 50,000 unit PO KUNZ 12/23/18 [History] Ezetimibe [Zetia] 10 mg PO DAILY 12/23/18 [History] Lisinopril-Hctz 20-25 mg [Zestoretic 20-25] 2 tab PO DAILY 12/23/18 [History] Niacin [Niacin ER] 500 mg PO HS 12/23/18 [History] Simvastatin [Zocor] 20 mg PO DAILY 12/23/18 [History] metFORMIN HCL [Glucophage] 500 mg PO BID 12/23/18 [History] sitaGLIPtin [Januvia] 100 mg PO DAILY 12/23/18 [History] Aspirin 325 mg PO BID #60 tab 12/30/18 [Rx] Docusate [Colace] 100 mg PO DAILY #30 capsule 12/30/18 [Rx] HYDROcodone/APAP 7.5-325MG [[place] 7.5] 1 - 2 each PO Q6HR PRN #56 tab 12/30/18 [Rx] Follow up Appointment(s)/Referral(s): Doron Senior, PAC [PHYSICIAN AUTOMATIC PRINT DEVELOPER] - 2 Weeks [facility] Visiting Nurse, [NON-STAFF] - Activity/Diet/Wound Care/Special Instructions: Orthopedic Discharge Instructions: 1. Wound care and infection precautions, keep incision dry and covered while showering, no lotions, creams, moisturizers. No soaking, pools, hot tubs. Do not scrub over incision. 2. Weight-bear as tolerated with walker / cane until follow-up. 3. Ice and elevate when necessary. Do not exceed 20 minutes per hour with ice pack. 4. Utilize compression sleeve until seen at first follow up appointment. 5. Pain meds and anticoagulants per prescription. 6. Pain medication has potential to cause constipation. Increase oral fluid and fiber intake. Contact primary care provider if you have not had a bowel movement within 48 hours after discharge. 7. No anti-inflammatory medication until discussed at first post operative visit, this including Motrin, Aleve, Mobic, Diclofenac. 8. Follow up in office at 2 weeks postop with Herbie Senior PA-C 9. Follow up with your primary care doctor 7-10 days after discharge. 10. Contact [facility] with any questions, . Discharge Disposition: HOME WITH HOME HEALTH SERVICES
[2018-12-30 20:31] LABS: Hemoglobin A1C 6.6 % (4.0-6.0)
[2019-01-04] MEDS ORDERED: ERGOCALCIFEROL 50,000 UNIT CAP PO SCH (09:00)
== END 2018-12-30 15:00 | disposition home health service (06) | DRG 470 ==
LOC: 2ORMAIN 08:45 → 4SSUR 17:06
PROVIDERS: ADMIT Orthopaedic Surgery; ATTEND Orthopaedic Surgery
PROC: 0SR904A Replacement of Right Hip Joint with Ceramic on Polyethylene Synthetic Substitute, Uncemented, Open Approach (ICD-10-PCS; principal; 2018-12-28)
DX: M16.11 Unilateral primary osteoarthritis, right hip (principal); E11.9 Type 2 diabetes mellitus without complications; E78.5 Hyperlipidemia, unspecified; I10 Essential (primary) hypertension; G47.33 Obstructive sleep apnea (adult) (pediatric); Z79.84 Long term (current) use of oral hypoglycemic drugs; Z79.899 Other long term (current) drug therapy; Z88.0 Allergy status to penicillin; Z87.730 Personal history of (corrected) cleft lip and palate
CPT/HCPCS: 73501; 83036; 85025; 86850; 86900; 86901; 88300

== ENCOUNTER → 2019-04-09 | Outpatient (CLI) | payer BC ==
[2019-04-09 14:01] LABS: Basophils % (A) 1 %; Eosinophils # (A) 0.1 k/uL (0-0.7); Eosinophils % (A) 2 %; HCT 42.7 % (39.0-53.0); Lymphocytes % (A) 31 %; MCH 28.3 pg (25.0-35.0); MCHC 32.7 g/dL (31.0-37.0); MCV 86.7 fL (80.0-100.0); Mean Platelet Volume 7.2; Monocytes # (A) 0.4 k/uL (0-1.0); Monocytes % (A) 6 %; Neutrophils # (A) 3.7 k/uL (1.3-7.7); Neutrophils % (A) 57 %; Platelet Count 221 k/uL (150-450); RBC 4.93 m/uL (4.30-5.90); RDW 14.3 % (11.5-15.5); WBC 6.4 k/uL (3.8-10.6)
[2019-04-09 14:08] LABS: INR 0.9 (<1.2); Prothrombin Time 9.7 sec (9.0-12.0)
[2019-04-09 14:10] LABS: Potassium 4.3 mmol/L (3.5-5.1)
== END | disposition home or self-care (01) ==
LOC: LABPAT 13:33
PROVIDERS: ATTEND Orthopaedic Surgery
DX: Z01.812 Encounter for preprocedural laboratory examination (principal); M16.12 Unilateral primary osteoarthritis, left hip
CPT/HCPCS: 36415; 80051; 85025; 85610; 87070

== ENCOUNTER 2019-04-20 06:10 | Inpatient (IN) | payer BC ==
--- NOTE | 2019-04-19 11:20 | HP ---
HISTORY AND PHYSICAL REASON FOR ADMISSION: Surgery scheduled for 04/20/2019 HISTORY OF PRESENT ILLNESS: Abilio Guerrero is a 58-year-old patient seen with symptomatic left hip osteoarthritis. After having treatment options discussed with him, he elected to proceed with left total hip arthroplasty via direct anterior approach. Consent regarding the procedure was obtained. Medical clearance provided by Dr. Star Carmona. PAST MEDICAL HISTORY: Hypertension, hyperlipidemia, [id number] diabetes. PAST SURGICAL HISTORY: Right total hip arthroplasty, herniorrhaphy. MEDICATIONS: Januvia, lisinopril, metformin, simvastatin. ALLERGIES: PENICILLIN. SOCIAL HISTORY: He denies current tobacco use. PHYSICAL EXAMINATION: Evaluation of the left hip: He has limited range of motion with severe pain, positive hip impingement sign. Straight leg raise negative. His distal neurovascular exam is intact. RADIOGRAPHS: Radiographs of the left hip reveal severe osteoarthritic changes. IMPRESSION: 1. Left hip osteoarthritis. 2. Hypertension. 3. Hyperlipidemia. 4. Fom-vawmsvw-hzdmenjrf diabetes. PLAN: Direct anterior left total hip arthroplasty. MMODL / IJN: [id number] /
[~2019-04-20 06:10] MED LIST changes: -CLINDAMYCIN 900 MG in DEXTROSE 5% IN WATER 50 ML IVPB ONE; -DEXAMETHASONE SOD PHOSPHATE 10 MG/ML 1 ML VIAL IV ONE; -HYDROmorphone 0.5 MG/0.5 ML SYRINGE IVP PRN; +LIDOCAINE 1% 20 ML VIAL (10MG/ML) FOR IV START INTRADERMA PRN; -MIDAZOLAM (PF) 2 MG/2 ML VIAL IV PRN; +MORPHINE SULFATE 2 MG/ML SYRINGE IV PRN; -ONDANSETRON 4 MG/2 ML VIAL IVP ONE; +ONDANSETRON 4 MG/2 ML VIAL IVP PRN; -SCOPOLAMINE 1.5MG/72HR PATCH TRANSDERM ONE
[2019-04-20] MEDS: LACTATED RINGERS 1,000 ML IV SCH ×3 (06:51→20:52)
[2019-04-20 07:04] LABS: Glucose,Whole Blood 110 mg/dL (75-99)
[2019-04-20] MEDS ORDERED: diphenhydrAMINE 50 MG/ML 1 ML VIAL ONE (07:20)
[2019-04-20] MEDS ORDERED: SODIUM CHLORIDE 0.9% 100 ML BAG ONE (07:20)
[2019-04-20] MEDS ORDERED: MIDAZOLAM 2 MG/2 ML VIAL ONE (07:20)
[2019-04-20] MEDS ORDERED: TRANEXAMIC ACID 1,000 MG/10 ML VIAL ONE (07:20)
[2019-04-20] MEDS ORDERED: fentaNYL (PF) 50 MCG/ML 2 ML AMP ONE (07:20)
[2019-04-20] MEDS ORDERED: ROPIVACAINE 246.25 MG, EPINEPHrine 0.5 MG, KETOROLAC 30 MG, cloNIDine HCL/PF 80 MCG, WA... MISCELLANE ONE ×10 (07:35→07:37)
[2019-04-20] MEDS ORDERED: ceFAZolin 3,000 MG in SODIUM CHLORIDE 0.9% IRRIGATIO 3,000 ML IRRIGATION ONE (08:14)
[2019-04-20] MEDS ORDERED: LACTATED RINGERS 1,000 ML IV ONE (09:38)
--- NOTE | 2019-04-20 10:13 | P.OP ---
Date of Procedure: 04/20/19 Preoperative Diagnosis: Left hip osteoarthritis Postoperative Diagnosis: Left hip osteoarthritis Procedure(s) Performed: Direct anterior left total hip arthroplasty Implants: 1. Depuy Corail KA size 8 press-fit standard collar femoral stem 2. Depuy [employer] 54 mm press-fit acetabular shell 3. Depuy pinnacle polyethylene acetabular liner 36 mm ID 54 mm OD 4. Biolox delta ceramic femoral head +1.5 36 mm Anesthesia: local, spinal Surgeon: Ashu Alva Press Offbearer #1: Doron Senior Estimated Blood Loss (ml): 600 Pathology: other (Femoral head) Condition: stable Disposition: PACU Indications for Procedure: 58-year-old patient seen with symptomatic left hip osteoarthritis. After options for treatment were discussed, he elected to proceed with total hip arthroplasty. Operative Findings: She description of procedure Description of Procedure: The patient was taken to the operative suite. Patient underwent a spinal anesthetic by the department of anesthesia. Patient was then transferred to the [place] table. Patient was given preoperative IV antibiotics and TXA. Both lower extremities were placed in standard leg spars. The hip was then prepped and draped in the normal sterile orthopedic fashion. A standard anterior incision was made beginning 3 cm lateral and 1 cm distal to the ASIS extending 10 cm. Dissection was then carried down through the subcutaneous soft tissues down to the fascia overlying the tensor fascia josé manuel. An incision was now made through the fascia. Careful dissection was taken down exposing the tensor fascia josé manuel muscle. A Cobra retractor was now placed along the medial femoral neck and a second one along the lateral femoral neck. The venous circumflex vessels were now identified, cauterized and clipped. We identified the anterior hip capsule. An incision was made through the hip capsule along the lateral border. I performed a partial anterior capsulectomy. Retractors were now placed around the femoral neck itself. A femoral neck cut was now made with a sagittal saw. It was completed with an osteotome at the lateral neck area. The femoral head was now removed without difficulty. The extremity was now rotated to 45 of external rotation. It was locked in position. Residual labrum was now debrided out. Serial reaming was performed of the acetabulum while Herbie ORTEGA assisted holding an anterior retractor for exposure. Once we reached the appropriate size and a trial was position and fit nicely. The appropriate size was now chosen opened and made available. It was introduced into the acetabulum without difficulty. The C-arm/fluoroscopy was now brought into the operative field. We made sure we had a true AP pelvic view. We now under direct C- arm/fluoroscopy introduced into the acetabular component with appropriate version and inclination. I held the cup in appropriate position well Herbie ORTEGA used a mallet to seat the acetabular component. I noted the component now to be well seated and stable. Acetabular cup introduce her was removed. The C-arm was pulled back. An appropriate liner was introduced and clicked into position. It was felt to be stable. At this point retractors were removed. The extremity was now placed into 120 external rotation with no traction. The leg was now dropped to the ground and adducted. Appropriate retractors were now positioned along the proximal femur. We also placed our femoral look into position. Additional capsular releasing was performed to gain access to the proximal femur. We now used a box osteotome. A canal finder was now utilized. I could not get into the canal as is canal was very tight and the bone was very hard. I now introduced a guide wire down into the canal. I now used a #8 reamer to open the proximal femur up. This reamer broke. I was able to retrieve with our ball-tipped guidewire. I now sent a second ball-tipped guidewire down the intramedullary canal. I was able to ream over this up to a 9.5 mm. Broaching was now performed with the assistance of Herbie ORTEGA tapping the broaches down with a mallet while held the broach in appropriate rotation and position. The first trial broach was was a size a Alfonso good rotational stability. Appropriate calcar planing was performed. A trial head/neck was placed into position. The hip was now reduced. The C- arm/fluoroscopy was brought back into the operative field. A spot film was obtained of the nonoperative hip. A spot film was obtained of the trial components. Overlays were performed, we noted good overall alignment and positi oning for determining leg length. The C-arm/fluoroscopy was pulled back. Retractors were repositioned and the hip was dislocated. The leg was again taken down to the ground and adducted. Appropriate retractors were repositioned as well as the femoral hook. All trial components were removed. The femoral implant was opened along with the femoral head. The femoral implant was introduced on the appropriate handle into our pre-broached area. I held the component position well Herbie ORTEGA used a mallet to seat the femoral component. The femoral component was now noted to be well seated and stable.. The femoral head was introduced with good positioning and fixation noted. Retractors were now removed. The hip was now reduced. There appeared be good positioning of the hip confirmed on intraoperative fluoroscopy. Spot films were obtained to document this. A second gram of TXA was given. The deep and superficial soft tissues were infiltrated with local analgesic. Bipolar cautery had been utilized intermittently through the procedure for hemostasis. The wound was irrigated copiously with pulse lavage mechanical irrigation. The fascia was repaired with Vicryl suture. The subcutaneous soft tissues were repaired in layers with Vicryl suture. The skin was approximated with pernio/Dermabond. Sterile dressings were applied. Patient was then awakened, transferred to a bed and taken to recovery in stable condition. Herbie ORTEGA assisted with the complex procedure.
[2019-04-20] MEDS ORDERED: ONDANSETRON 4 MG/2 ML VIAL IVP PRN (10:14)
[2019-04-20] MEDS ORDERED: HYDROmorphone 1 MG/ML 1 ML SYRINGE IVP PRN (10:14)
[2019-04-20] MEDS ORDERED: HYDROmorphone 0.5 MG/0.5 ML SYRINGE IVP PRN ×2 (10:14)
[2019-04-20] MEDS ORDERED: HYDROcodone/APAP 7.5-325MG 1 EACH TAB PO PRN (10:14)
[2019-04-20] MEDS ORDERED: NALOXONE 0.4 MG/ML 1 ML VIAL IV PRN (10:14)
[2019-04-20] MEDS ORDERED: traMADol 50 MG TAB PO PRN (10:14)
[2019-04-20] MEDS: KETOROLAC 30 MG/ML 1 ML VIAL IVP SCH ×4 (10:24→17:21)
[2019-04-20 10:46] LABS: Glucose,Whole Blood 140 mg/dL (75-99)
[2019-04-20] MEDS ORDERED: DOCUSATE 100 MG CAP PO PRN (11:34)
[2019-04-20 11:48] VITALS: BMI 38.7
[2019-04-20] MEDS: HYDROcodone/APAP 7.5-325MG 1 EACH TAB PO PRN ×2 (11:51→21:02)
[2019-04-20] MEDS: INSULIN ASPART (NovoLOG) 100 UNIT/ML VIAL SQ SCH ×3 (11:54→20:51)
[2019-04-20 12:07] LABS: Glucose,Whole Blood 141 mg/dL (75-99)
--- NOTE | 2019-04-20 13:35 | FL ---
Fluoroscopy History: Pain Fluoroscopy provided for left hip prosthesis. Prosthetic device present appropriately placed with nor mal alignment.
[2019-04-20 17:08] LABS: Glucose,Whole Blood 231 mg/dL (75-99)
[2019-04-20 20:26] LABS: Glucose,Whole Blood 194 mg/dL (75-99)
[2019-04-20] MEDS: metFORMIN 500 MG TAB PO SCH (20:51)
[2019-04-20] MEDS ORDERED: ENOXAPARIN 40 MG/0.4 ML SYRINGE SQ SCH (21:00)
[2019-04-20] MEDS ORDERED: SENNOSIDES-DOCUSATE SODIUM 1 EACH TAB PO SCH (21:00)
[2019-04-21] MEDS: KETOROLAC 30 MG/ML 1 ML VIAL IVP SCH ×3 (00:16→12:53)
[2019-04-21] MEDS: LACTATED RINGERS 1,000 ML IV SCH ×3 (04:19→09:17)
[2019-04-21] MEDS: HYDROcodone/APAP 7.5-325MG 1 EACH TAB PO PRN ×2 (05:14→12:56)
[2019-04-21 07:08] LABS: Glucose,Whole Blood 120 mg/dL (75-99)
[2019-04-21 07:55] VITALS: BP 111/68; PULSE 87; RESP 15; TEMP 98
[2019-04-21 08:34] LABS: Basophils % (A) 0 %; Eosinophils # (A) 0.1 k/uL (0-0.7); Eosinophils % (A) 2 %; HCT 31.5 % (39.0-53.0); Lymphocytes # (A) 1.5 k/uL (1.0-4.8); Lymphocytes % (A) 23 %; MCH 28.8 pg (25.0-35.0); MCHC 32.7 g/dL (31.0-37.0); Monocytes # (A) 0.4 k/uL (0-1.0); Monocytes % (A) 6 %; Neutrophils # (A) 4.2 k/uL (1.3-7.7); Neutrophils % (A) 67 %; Platelet Count 175 k/uL (150-450); RBC 3.58 m/uL (4.30-5.90); WBC 6.2 k/uL (3.8-10.6)
[2019-04-21 08:53] LABS: HGB 10.3 gm/dL (13.0-17.5)
[2019-04-21] MEDS ORDERED: FAMOTIDINE 20 MG TAB PO SCH (09:00)
[2019-04-21] MEDS ORDERED: LINAGLIPTIN 5 MG TABLET PO SCH (09:00)
[2019-04-21] MEDS ORDERED: EZETIMIBE 10 MG TAB PO SCH (09:00)
[2019-04-21] MEDS: INSULIN ASPART (NovoLOG) 100 UNIT/ML VIAL SQ SCH ×2 (09:07→12:53)
[2019-04-21] MEDS: metFORMIN 500 MG TAB PO SCH (09:16)
[2019-04-21 11:44] LABS: Glucose,Whole Blood 145 mg/dL (75-99)
--- NOTE | 2019-04-21 12:43 | P.PN ---
Subjective Progress Note Date: 04/21/19 Principal diagnosis: Status post direct anterior left total hip arthroplasty Patient evaluated bedside, as is present. Patient is doing very well at this time. He did have a episode of low blood pressure nausea yesterday, this is improved. Denies any chest pain or shortness of breath at this time. Objective - Vital Signs Vital signs: Vital Signs Temp 98.0 F 04/21/19 07:03 Pulse 87 04/21/19 07:03 Resp 15 04/21/19 07:03 BP 111/68 04/21/19 07:03 Pulse Ox 96 04/21/19 07:03 Intake & Output 04/20/19 04/21/19 04/21/19 18:59 06:59 18:59 Intake Total 1751 400 Output Total 900 Balance 851 400 Intake: IV 1251 Oral 500 400 Output: Urine 300 Estimated Blood Loss 600 Other: Voiding Method Urinal Toilet Urinal # Voids 1 1 - Exam Left lower extremity: Incision is clean, dry, and intact. The exofin fusion tape is in good condition. There is minimal soft tissue swelling and ecchymosis surrounding the medial and lateral aspects of the incision. Calf is soft, no tenderness with palpation. Plantar flexion, dorsiflexion, EHL, FHL are intact. Sensory exam to light touch throughout the extremity is intact, dorsal pedis pulses 2+. - Labs CBC & Chem 7: 04/21/19 07:05 Labs: Abnormal Lab Results - Last 24 Hours (Table) 04/20/19 04/20/19 04/21/19 Range/Units 16:56 20:14 06:56 RBC (4.30-5.90) m/uL Hgb (13.0-17.5) gm/dL Hct (39.0-53.0) % POC Glucose (mg/dL) 231 H 194 H 120 H (75-99) mg/dL 04/21/19 04/21/19 Range/Units 07:05 11:42 RBC 3.58 L (4.30-5.90) m/uL Hgb 10.3 L D (13.0-17.5) gm/dL Hct 31.5 L (39.0-53.0) % POC Glucose (mg/dL) 145 H (75-99) mg/dL Assessment and Plan Plan: Assessment: Postoperative day 1 status post left direct anterior hip replacement Plan: Pain control, we'll discharge home on oral medication GI and DVT prophylaxis, resume aspirin 325 mg daily Wound care instructions discussed Home physical therapy and nursing after discharge Ice and elevate often Medical recommendations Discharged home today Time with Patient: Less than 30
--- NOTE | 2019-04-21 12:46 | P.DS ---
Providers Date of admission: 04/20/19 06:10 Expected date of discharge: 04/21/19 Attending physician: Ashu Alva Consults: 04/20/19 10:14 Consult Physician Routine Consulting Provider: Star Carmona Reason/Comments: Medical management Do you want consulting provider notified?: Yes Primary care physician: Star Carmona [facility] Course: Date of admission: 04/20/2019 Date of discharge: 04/21/2019 Admission diagnosis: Status post her anterior left total hip arthroplasty Discharge diagnosis: Same Attending physician: Dr. Alva Surgical procedures: Direct anterior left total hip arthroplasty Brief history: Patient is a 58-year-old male with a history of progressive primary left hip osteoarthritis. At this point patient has failed conservative treatment measures and has opted to proceed with a elective direct anterior left total hip arthroplasty. Hospital course: Details of patient's surgery can be found in operative report. Patient tolerated the procedure well and was subsequently transported to orthopedic floor. Patient's orthopeidc and medical care was provided daily. Patient had daily laboratory tests performed for evaluation of overall blood counts. Patient had daily physical therapy to include strengthening range of motion as well as education with walker ambulation. Patient was treated with Lovenox for their postoperative DVT prophylaxis during their inpatient stay. Patient was noted to have a relatively uneventful postoperative course. Patient reported satisfactory pain control with oral pain medications by postoperative day 0. Patient showed satisfactory progress with physical therapy. Patient moved steadily through the program and had no difficulty meeting the goals by postoperative day 1. Given patient's otherwise satisfactory course and having met physical therapy goals, plan is to discharge patient home on postoperative day 1. Discharge condition/disposition: Patient will be discharged home in stable co ndition. Discharge medications: Instructions are given on resumption of patient's normal daily medications per primary care recommendation, in addition patient will be prescribed [place] 7.5 mg/325 mg, Colace 100 mg. Discharge instructions: 1. Wound care and infection precautions, keep incision dry and covered while showering], no lotions, creams, moisturizers. No soaking, tubs, pools, hottubs. Do not scrub over the incision. 2. Weight-bear [as tolerated] with walker / cane until follow-up. 3. Ice and elevate when necessary. Do not exceed 20 minutes per hour with ice pack. 4. Utilize compression sleeve until seen at first follow up appointment. 5. Visiting nursing care. 6. Home physical therapy. 7. Pain meds and anticoagulants per prescription. 8. Pain medication has potential to cause constipation. Increase oral fluid and fiber intake. Contact primary care provider if you have not had a bowel movement within 48 hours after discharge 9. No anti-inflammatory medication until discussed at first post operative visit, this including Motrin, Aleve, Mobic, Diclofenac. 10. Follow up in office at 2 weeks postop with Herbie Senior PA-C 11. Follow up with your primary care doctor 7-10 days after discharge. 12. Contact [facility] with any questions, . Procedures: Direct anterior left total hip arthroplasty Patient Condition at Discharge: Good Plan - Discharge Summary Discharge Rx Participant: Yes New Discharge Prescriptions: New Docusate [Colace] 100 mg PO DAILY #30 capsule HYDROcodone/APAP 7.5-325MG [[place] 7.5] 1 - 2 each PO Q6HR PRN #40 tab PRN Reason: Pain No Action sitaGLIPtin [Januvia] 100 mg PO DAILY metFORMIN HCL [Glucophage] 500 mg PO BID Lisinopril-Hctz 20-25 mg [Zestoretic 20-25] 2 tab PO DAILY Ezetimibe [Zetia] 10 mg PO DAILY Simvastatin [Zocor] 20 mg PO DAILY Niacin [Niacin ER] 500 mg PO HS Ergocalciferol (Vitamin D2) [Vitamin D2] 50,000 unit PO KUNZ Aspirin 325 mg PO HS Ibuprofen [Motrin] 600 mg PO Q6HR PRN PRN Reason: Pain Docusate [Colace] 100 mg PO DAILY PRN PRN Reason: Constipation Discharge Medication List Ergocalciferol (Vitamin D2) [Vitamin D2] 50,000 unit PO KUNZ 12/23/18 [History] Ezetimibe [Zetia] 10 mg PO DAILY 12/23/18 [History] Lisinopril-Hctz 20-25 mg [Zestoretic 20-25] 2 tab PO DAILY 12/23/18 [History] Niacin [Niacin ER] 500 mg PO HS 12/23/18 [History] Simvastatin [Zocor] 20 mg PO DAILY 12/23/18 [History] metFORMIN HCL [Glucophage] 500 mg PO BID 12/23/18 [History] sitaGLIPtin [Januvia] 100 mg PO DAILY 12/23/18 [History] Aspirin 325 mg PO HS 04/10/19 [History] Docusate [Colace] 100 mg PO DAILY PRN 04/10/19 [History] Ibuprofen [Motrin] 600 mg PO Q6HR PRN 04/10/19 [History] Docusate [Colace] 100 mg PO DAILY #30 capsule 04/21/19 [Rx] HYDROcodone/APAP 7.5-325MG [[place] 7.5] 1 - 2 each PO Q6HR PRN #40 tab 04/21/19 [Rx] Follow up Appointment(s)/Referral(s): Doron Senior PAC [PHYSICIAN BASE CLOTH INSPECTOR] - 2 Weeks [facility] Visiting Nurse, [NON-STAFF] - Activity/Diet/Wound Care/Special Instructions: Orthopedic Discharge Instructions: 1. Wound care and infection precautions, keep incision dry and covered while showering, no lotions, creams, moisturizers. No soaking, pools, hot tubs. Do not scrub over incision. 2. Weight-bear as tolerated with walker / cane until follow-up. 3. Ice and elevate when necessary. Do not exceed 20 minutes per hour with ice pack. 4. Utilize compression sleeve until seen at first follow up appointment. 5. Pain meds and anticoagulants per prescription. 6. Pain medication has potential to cause constipation. Increase oral fluid and fiber intake. Contact primary care provider if you have not had a bowel movement within 48 hours after discharge. 7. No anti-inflammatory medication until discussed at first post operative visit, this including Motrin, Aleve, Mobic, Diclofenac. 8. Follow up in office at 2 weeks postop with Herbie Senior PA-C 9. Follow up with your primary care doctor 7-10 days after discharge. 10. Contact [facility] with any questions, . Discharge Disposition: HOME WITH HOME HEALTH SERVICES
--- NOTE | 2019-04-21 19:05 | P.CONS ---
History of Present Illness - Reason for Consult Consult date: 04/21/19 Medical management diabetes mellitus, hypertension, hyperlipidemia Requesting physician: Ashu Alva - Chief Complaint Left hip osteoarthritis, status post total hip arthroplasty - History of Present Illness This is a 58-year-old gentleman with history of diabetes mellitus, hyperlipidemia, hypertension, osteoarthritis, sleep apnea wears CPAP at home, admitted with symptomatic left hip osteoarthritis, status post elective total hip arthroplasty. Tolerated procedure well. Mild hypotension with nausea yesterday, subsided. Pain controlled. Ambulating, performed stairs with PT, tolerated exertion well. Denies lightheadedness dizziness or focal deficits. IS up to 2000. Hemoglobin 10.3. good diet intake with no nausea or vomiting. Blood sugars controlled. positive flatus, no bowel movement. Denies chest pain, palpitations or shortness of breath. Review of Systems ROS Statement: Those systems with pertinent positive or pertinent negative responses have been documented in the HPI. ROS Other: All systems not noted in ROS Statement are negative. Past Medical History Past Medical History: Diabetes Mellitus, Hyperlipidemia, Hypertension, Osteoa rthritis (OA), Sleep Apnea/CPAP/BIPAP Additional Past Medical History / Comment(s): Uses CPAP. History of Any Multi-Drug Resistant Organisms: None Reported Past Surgical History: Ear Surgery, Hernia Repair, Joint Replacement Additional Past Surgical History / Comment(s): Repair cleft palate as a baby, lipomas removed. TOTAL RT HIP 12/2018 Past Anesthesia/Blood Transfusion Reactions: No Reported Reaction Smoking Status: Never smoker - Past Family History Mother Family Medical History: Cancer Medications and Allergies Home Medications Medication Instructions Recorded Confirmed Type Ergocalciferol (Vitamin D2) 50,000 unit PO KUNZ 12/23/18 04/20/19 History [Vitamin D2] Ezetimibe [Zetia] 10 mg PO DAILY 12/23/18 04/20/19 History Lisinopril-Hctz 20-25 mg 2 tab PO DAILY 12/23/18 04/20/19 History [Zestoretic 20-25] Niacin [Niacin ER] 500 mg PO HS 12/23/18 04/20/19 History Simvastatin [Zocor] 20 mg PO DAILY 12/23/18 04/20/19 History metFORMIN HCL [Glucophage] 500 mg PO BID 12/23/18 04/20/19 History sitaGLIPtin [Januvia] 100 mg PO DAILY 12/23/18 04/20/19 History Aspirin 325 mg PO HS 04/10/19 04/20/19 History Docusate [Colace] 100 mg PO DAILY PRN 04/10/19 04/20/19 History Ibuprofen [Motrin] 600 mg PO Q6HR PRN 04/10/19 04/20/19 History Docusate [Colace] 100 mg PO DAILY #30 capsule 04/21/19 Rx HYDROcodone/APAP 7.5-325MG [[place] 1 - 2 each PO Q6HR PRN #40 tab 04/21/19 Rx 7.5] Allergies Allergy/AdvReac Type Severity Reaction Status Date / Time Penicillins Allergy Unknown Verified 04/20/19 10:20 Childhood Physical Exam Vitals: Vital Signs Temp Pulse Resp BP Pulse Ox 04/20/19 11:17 71 16 100/62 99 04/20/19 11:02 65 16 106/60 100 04/20/19 10:45 75 16 112/67 100 04/20/19 10:35 66 16 110/56 97 04/20/19 10:23 97.2 F L 77 16 109/65 95 04/20/19 06:55 98.2 F 84 18 123/81 97 Intake and Output 04/19/19 04/20/19 04/20/19 22:59 06:59 14:59 Intake Total 300 1251 Output Total 600 Balance 300 651 Intake: IV 300 1251 Output: Estimated Blood Loss 600 PHYSICAL EXAM: VITAL SIGNS: As above GENERAL: Sitting up in bed, no acute distress HEENT: Conjunctivae normal. eyes normal. Oral mucosa moist NECK: No JVD. No thyroid enlargement. No LNs CARDIOVASCULAR: S1, S2 regular.. No murmur RESPIRATION: Breath sounds diminished in the bases. No rhonchi or crackles. No bronchial breathing. ABDOMEN: Soft, nontender . No guarding. no masses palpable. Bowel sounds heard. LEFT LOWER EXTREMITY; minimal edema, ecchymosis, tender, status post surgery, positive DP pulses PSYCHIATRY: Alert and oriented X3, mood and affect normal. NERVOUS SYSTEM: Cranial N 2-12 grossly normal. Moves all 4 limbs. No focal de ficits. Strength and sensation grossly intact.. Skin: no lesions, no rash Results CBC & Chem 7: 07/23/19 07:05 Labs: Abnormal Lab Results - Last 24 Hours (Table) 04/20/19 04/20/19 Range/Units 06:48 10:38 POC Glucose (mg/dL) 110 H 140 H (75-99) mg/dL Assessment and Plan Assessment: -Symptomatic left hip osteoarthritis ,Status post left anterior hip replacement, anterior approach -Diabetes mellitus -Sleep apnea, wrists CPAP -hyperlipidemia -hypertension Plan: Continue current medication regime ,monitoring and symptomatic treatment. Significant clinical improvement. Patient is being discharged home today per orthopedic surgery. Follow with PCP in [address] Alva for the consult. The impression and plan of care has been dictated as directed. : I performed a history and examination of this patient, discussed the same with the dictator. I agree with the dictator's note ,documented as a scribe. Any additional findings or plans will be noted. Time taken: 35 minutes
[2019-04-22] MEDS ORDERED: MELOXICAM 7.5 MG TAB PO SCH (09:00)
== END 2019-04-21 14:29 | disposition home health service (06) | DRG 470 ==
LOC: 2ORMAIN 06:10 → 4SSUR 10:09
PROVIDERS: ADMIT Orthopaedic Surgery; ATTEND Orthopaedic Surgery
PROC: 0SRB04A Replacement of Left Hip Joint with Ceramic on Polyethylene Synthetic Substitute, Uncemented, Open Approach (ICD-10-PCS; principal; 2019-04-20 07:30)
DX: M16.12 Unilateral primary osteoarthritis, left hip (principal); I95.9 Hypotension, unspecified; E11.9 Type 2 diabetes mellitus without complications; E78.5 Hyperlipidemia, unspecified; I10 Essential (primary) hypertension; R11.0 Nausea; G47.33 Obstructive sleep apnea (adult) (pediatric); Z79.82 Long term (current) use of aspirin; Z79.84 Long term (current) use of oral hypoglycemic drugs; Z79.899 Other long term (current) drug therapy; Z87.730 Personal history of (corrected) cleft lip and palate; Z96.641 Presence of right artificial hip joint
CPT/HCPCS: 73501; 85025; 86850; 86900; 86901; 88300

== ENCOUNTER → 2019-05-06 | Outpatient (CLI) | payer BC ==
--- NOTE | 2019-05-06 15:29 | XR ---
EXAMINATION TYPE: XR Hip Complete LT DATE OF EXAM: 05/06/2019 CLINICAL HISTORY: Left hip pain 2.5 weeks after surgery TECHNIQUE: Single AP portable view of left hip is obtained. COMPARISON: None. FINDINGS: Metallic hardware from left hip arthroplasty is seen and appears satisfactory in alignment and position. No fracture seen of the [place] bone of the left hip nor visualized pelvis. Heterotopic ossification is noted, postoperative. IMPRESSION: Metallic hardware from left hip arthroplasty is satisfactory in position.
== END | disposition home or self-care (01) ==
LOC: RADXRMAIN 12:52
PROVIDERS: ATTEND Orthopaedic Surgery
DX: Z96.642 Presence of left artificial hip joint (principal)
CPT/HCPCS: 73502

== ENCOUNTER → 2019-05-07 | Outpatient (CLI) | payer BC ==
--- NOTE | 2019-05-07 17:15 | PN ---
PROGRESS NOTE DATE OF SERVICE: 05/07/2019 58-year-old gentleman has been followed in Sleep Center for treatment of obstructive sleep apnea-hypopnea syndrome. The patient continued to use his CPAP equipment every night for the whole night without significant problems. Sleeps well during the day. [place] Sleepiness Scale is 4, which is normal. I checked his CPAP unit. Usage for the last 6 months every day. 180 out of 180 nights and 170 out of 180 more than 4 hours. Average usage is 6.0 hours. Range of the pressure of 5-16 cm of water with average pressure 15 cm of water. Leak is 11 L/minute, which is normal range. Apnea-hypopnea index 4.9, which is acceptable. MEDICATIONS: Metformin, simvastatin, lisinopril, hydrochlorothiazide, Januvia, Zetia, vitamin D, niacin, baby aspirin, and Aleve, Sertraline. PHYSICAL EXAM: Patient in no distress. BP 127/74, HR 88, RR 16, height 5 feet 8 inches, weight 239 pounds. Body mass index 36.3, temperature 97.9, oxygen saturation at room air 96%. HEENT: Oropharynx, extremely low soft palate. Mallampati 4. Neck: Supple, no JVD. Thyroid is not palpable. LUNGS: Clear to percussion and to auscultation. Good air exchange. No wheezing or rhonchi. HEART: S1, S2 regular. No murmurs, gallops, or rubs. ABDOMEN: Slightly obese. Soft and nontender. Bowel sounds are present. No organomegaly appreciated. EXTREMITIES: No clubbing or cyanosis. DOUBLE HEAD MACHINE OPERATOR Awake, alert, and oriented X3. Cranial nerves 2 to 7 intact. There is no fasciculation or atrophy. noted. No focal deficits observed. IMPRESSION: 1. Obstructive sleep apnea-hypopnea syndrome. The patient demonstrated practically 100% compliance benefitting from treatment. 2. Hypertension. 3. Obesity. 4. Diabetes mellitus. 5. Hyperlipidemia. 6. Status post tonsillectomy. 7. 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 PLAN: 1. I will increase maximal range of pressure to 17 cm of water. 2. Patient will continue to use equipment every night for the whole night as before. 3. Losing weight. 4. Sleep hygiene with regular time in bed for at least 8 hours. 5. No driving if feeling sleepiness. 6. We will maintain all necessary CPAP prescription including mask, tube and filters. Thank you very much for allowing me to participate in management of your patient. Sincerely, Akbar Cameron MD, PhD, FAASM Diplomat of [employer] Wood Casket Maker of [facility] [place] MMODL / LILLIANA: [id number] /
== END ==
LOC: SLEEP 13:44
PROVIDERS: ATTEND Internal Medicine
DX: G47.33 Obstructive sleep apnea (adult) (pediatric) (principal); I10 Essential (primary) hypertension; E66.9 Obesity, unspecified; E11.9 Type 2 diabetes mellitus without complications; E78.5 Hyperlipidemia, unspecified; Z90.89 Acquired absence of other organs; Z98.890 Other specified postprocedural states; Z79.899 Other long term (current) drug therapy; Z99.89 Dependence on other enabling machines and devices; Z79.82 Long term (current) use of aspirin; Z79.84 Long term (current) use of oral hypoglycemic drugs

== ENCOUNTER → 2019-07-04 | Outpatient (CLI) | payer BC ==
[2019-07-04 16:27] LABS: African American GFR (CKD) 114.1 (60.0-200.0); Chol/HDL Ratio 3.34; LDL Cholesterol,Calculated 47.8 mg/dL (0.0-131.0); VLDL Calculation 34.2 mg/dL (5.00-40.00)
[2019-07-04 17:33] LABS: Hemoglobin A1C 6.3 % (4.0-6.0)
== END | disposition home or self-care (01) ==
LOC: LABWHC1 11:31
PROVIDERS: ATTEND Family Medicine
DX: I10 Essential (primary) hypertension (principal); E11.9 Type 2 diabetes mellitus without complications
CPT/HCPCS: 36415; 80051; 80061; 82043; 82565; 82570; 83036; 84443; 84520

== ENCOUNTER → 2019-10-31 | Outpatient (CLI) | payer BC ==
[2019-10-31 17:25] LABS: Chol/HDL Ratio 3.32; LDL Cholesterol,Calculated 71.2 mg/dL (0.0-131.0); VLDL Calculation 23.8 mg/dL (5.00-40.00)
[2019-10-31 18:37] LABS: Hemoglobin A1C 7.3 % (4.0-6.0)
== END | disposition home or self-care (01) ==
LOC: LABWHC1 08:05
PROVIDERS: ATTEND Family Medicine
DX: E11.9 Type 2 diabetes mellitus without complications (principal); I10 Essential (primary) hypertension
CPT/HCPCS: 36415; 80061; 83036

== ENCOUNTER → 2020-05-05 | Outpatient (CLI) | payer BC ==
--- NOTE | 2020-05-05 23:14 | SFUN ---
SLEEP CENTER FOLLOW UP NOTE DATE OF SERVICE: 05/05/2020 This patient is a 59-year-old gentleman who has been followed in Sleep Center for treatment of obstructive sleep apnea-hypopnea syndrome. The patient continues to use CPAP equipment every night for the whole night. No snoring with the machine, according to his . [place] Sleepiness Scale today is 4. He is getting all his CPAP supplies, except recently his water chamber was not changed, but it is in good shape. I checked his CPAP unit. It is in automatic regimen at the pressure 5 to 17, average pressure 14.8, usage 28/30 nights for more than 4 hours with average usage 5.2 hours per night. Leak is 20 L/minute, which is borderline. Apnea-hypopnea index 3.7, which is in normal range. MEDICATIONS: Metformin, Januvia, simvastatin, lisinopril, hydrochlorothiazide, vitamin D2, niacin. PHYSICAL EXAMINATION: GENERAL: A pleasant patient in no distress. VITAL SIGNS: BP 123/75, HR 84, RR 16, height 5 feet 8 inches, weight 257, BMI 39, temperature 98.1. Oxygen saturation at room air 97%. HEENT: PERRLA, EOMI. Evaluation of oropharynx showed tongue protrudes midline. Low position of soft palate. Mallampati IV. NECK: Supple. No JVD. Thyroid is not palpable. LUNGS: Clear to percussion and to auscultation. Good air exchange. No wheezing or rhonchi. HEART: S1, S2 regular. No murmurs, gallops or rubs. ABDOMEN: Obese. EXTREMITIES: No clubbing or cyanosis. REHAB SPEC: Awake, alert, and oriented X3. Cranial nerves 2 to 7 intact. There is no fasciculation or atrophy. noted. No focal deficits observed. IMPRESSION: 1. Obstructive sleep apnea-hypopnea syndrome. Patient demonstrated great compliance with treatment, benefitting from treatment. 2. Obesity. Patient's weight increased by 18 pounds since previous visit. 3. Hypertension. 4. Diabetes mellitus. 5. Hyperlipidemia. 6. Status post tonsillectomy. 7. 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 PLAN: 1. Patient will continue to use PAP equipment every night for the whole night. 2. Sleep hygiene with regular time in bed for at least 7-1/2 to 8 hours. 3. Precautions related to driving. No driving if feeling sleepiness. 4. I will maintain all necessary prescription for PAP supplies including mask, tube, filters. 5. Watching and losing weight. 6. No driving if feeling sleepiness. 7. Follow-up visit in one year, or earlier if patient has any problems. Thank you very much for allowing me to participate in the management of your patient. Sincerely, Akbar Cameron MD, PhD, FAASM Diplomat of [employer] Uke Operator of [facility] [place] MMODL / JOHNN: [id number] /
== END | disposition home or self-care (01) ==
LOC: SLEEP 14:27
PROVIDERS: ATTEND Internal Medicine
DX: G47.33 Obstructive sleep apnea (adult) (pediatric) (principal); E66.9 Obesity, unspecified; I10 Essential (primary) hypertension; E11.9 Type 2 diabetes mellitus without complications; E78.5 Hyperlipidemia, unspecified; Z99.89 Dependence on other enabling machines and devices; Z98.890 Other specified postprocedural states

== ENCOUNTER → 2020-05-23 | Outpatient (CLI) | payer BC ==
[2020-05-23 15:25] LABS: Potassium 4.2 mmol/L (3.5-5.5)
[2020-05-23 16:20] LABS: Hemoglobin A1C 7.5 % (4.0-6.0)
[2020-05-23 19:41] LABS: Urine Creatinine 101.4 mg/dL
[2020-05-24 12:40] LABS: African American GFR (CKD) 95.1 (60.0-200.0); Chol/HDL Ratio 3.91; LDL Cholesterol,Calculated 57.4 mg/dL (0.0-131.0); VLDL Calculation 44.6 mg/dL (5.00-40.00)
== END | disposition home or self-care (01) ==
LOC: LABWHC1 09:02
PROVIDERS: ATTEND Family Medicine
DX: I10 Essential (primary) hypertension (principal); E11.9 Type 2 diabetes mellitus without complications; B89 Unspecified parasitic disease
CPT/HCPCS: 36415; 80051; 80061; 82043; 82565; 82570; 83036; 84443; 84520; 86769

== ENCOUNTER → 2020-12-30 | Outpatient (CLI) | payer BC ==
[2020-12-30 14:34] LABS: HCT 44.8 % (39.6-50.0); HGB 14.9 g/dL (13.0-17.0); MCH 30.4 pg (27.0-32.0); MCHC 33.3 g/dL (32.0-37.0); MCV 91.4 fL (80.0-97.0); Mean Platelet Volume 10.5 fL (9.5-12.2); Platelet Count 218 X 10*3/uL (140-440); WBC 8.47 X 10*3/uL (4.50-10.00)
[2020-12-30 17:28] LABS: Urine Creatinine 120.2 mg/dL
[2020-12-30 18:20] LABS: African American GFR (CKD) 84.1 (60.0-200.0); Anion Gap 10.4 mmol/L (4.00-12.00); Carbon Dioxide 25.6 mmol/L (21.6-31.8); Chol/HDL Ratio 4.32; Non-African American GFR(CKD) 72.6 (60.0-200.0)
[2020-12-30 20:04] LABS: Hemoglobin A1C 6.9 % (4.0-6.0)
== END | disposition home or self-care (01) ==
LOC: LABWHC1 08:09
PROVIDERS: ATTEND Family Medicine
DX: I10 Essential (primary) hypertension (principal); N39.0 Urinary tract infection, site not specified; Z79.899 Other long term (current) drug therapy
CPT/HCPCS: 36415; 80051; 80061; 82043; 82306; 82565; 82570; 83036; 84443; 84520; 85027

== ENCOUNTER → 2021-05-11 | Outpatient (CLI) | payer BC ==
--- NOTE | 2021-05-12 11:27 | SFUN ---
SLEEP CENTER FOLLOW UP NOTE DATE OF SERVICE: 05/11/2021 This 60-year-old gentleman has been followed in Sleep Center for treatment of obstructive sleep apnea-hypopnea syndrome. The patient continues to use his CPAP equipment every night for the whole night. He denies any significant snoring. [place] Sleepiness Scale today is 6, which is normal. I checked his CPAP unit. Range of the pressure is 5-17 in automatic regimen. Average pressure is 15.2. Usage is 30/30 nights and 26/30 nights for more than 4 hours with average 4.6 hours per night. Leak is slightly high at 37 L/minute. Apnea-hypopnea index has increased to 6.8. During the previous visit it was 3.7 with the same regimen. MEDICATIONS: 1. . 2. Simvastatin. 3. Niacin. 4. Lisinopril. 5. Metformin. 6. Januvia. PHYSICAL EXAMINATION: GENERAL: A pleasant patient without any distress. VITAL SIGNS: BP 136/79, HR 78, RR 15, height 5 feet 8 inches, weight 243 pounds, body mass index 36.9. The patient lost 14 pounds of weight. Temperature 98.1, oxygen saturation at room air 96%. HEENT: PERRLA, EOMI, evaluation of oropharynx showed tongue protrudes midline. Low position of soft palate. Mallampati 4. NECK: Supple, no JVD. Thyroid is not palpable. LUNGS: Clear to percussion and to auscultation. Good air exchange. No wheezing or rhonchi. HEART: S1, S2 regular. No murmurs, gallops, or rubs. ABDOMEN: Obese. EXTREMITIES: No clubbing or cyanosis. 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 Cranial nerves 2 to 7 intact. There is no fasciculation or atrophy. noted. No focal deficits observed. IMPRESSION: 1. Obstructive sleep apnea-hypopnea syndrome. Patient demonstrated great compliance with treatment, benefitting from treatment. Apnea-hypopnea index is slightly increased compared with the previous visit. For the last month, average is 6.8. 2. Obesity. Patient lost some weight compared to the previous visit. 3. Hypertension. 4. Diabetes mellitus. 5. Hyperlipidemia. 6. Status post tonsillectomy. 7. 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 PLAN: 1. I changed the regimen in the machine to maximal level of pressure 18. 2. Patient will continue to use PAP equipment every night for the whole night. 3. Sleep hygiene with regular time in bed for at least 7-1/2 to 8 hours. 4. Precautions related to driving. No driving if feeling sleepiness. 5. I will maintain all necessary prescription for PAP supplies including mask, tube, filters. 6. Watching weight. 7. Follow-up visit in 6 months or earlier if patient has any problems. Thank you very much for allowing me to participate in the management of your patient. Sincerely, Akbar Cameron MD, PhD, FAASM Diplomat of [place] [employer] Specialties Sleep Medicine Board of [place] [employer] of Internal Medicine Traffic Lieutenant of [facility] [place] MMKEELY / JOHNN: [id number] /
== END ==
LOC: SLEEP 14:37
PROVIDERS: ATTEND Internal Medicine
DX: G47.33 Obstructive sleep apnea (adult) (pediatric) (principal); E66.9 Obesity, unspecified; I10 Essential (primary) hypertension; E11.9 Type 2 diabetes mellitus without complications; E78.5 Hyperlipidemia, unspecified; Z90.09 Acquired absence of other part of head and neck; Z98.890 Other specified postprocedural states; Z79.84 Long term (current) use of oral hypoglycemic drugs; Z79.899 Other long term (current) drug therapy; Z99.89 Dependence on other enabling machines and devices; Z88.0 Allergy status to penicillin

== ENCOUNTER → 2021-07-22 | Outpatient (CLI) | payer BC ==
[2021-07-22 13:20] LABS: African American GFR (CKD) 107.2 (60.0-200.0); Anion Gap 9.2 mmol/L (4.00-12.00); Blood Urea Nitrogen 13.8 mg/dL (9.0-27.0); Carbon Dioxide 27.8 mmol/L (21.6-31.8); Chol/HDL Ratio 2.9 Ratio; HDL Cholesterol 39.7 mg/dL (40.00-60.00); LDL Cholesterol,Calculated 56.3 mg/dL (0.0-131.0); Non-African American GFR(CKD) 92.5 (60.0-200.0); Potassium 3.9 mmol/L (3.5-5.5); Triglycerides 95.2 mg/dL (0.00-149.00); VLDL Calculation 19.04 mg/dL (5.00-40.00)
== END | disposition home or self-care (01) ==
LOC: LABWHC1 08:07
PROVIDERS: ATTEND Family Medicine
DX: E21.5 Disorder of parathyroid gland, unspecified (principal)
CPT/HCPCS: 36415; 80051; 80061; 82043; 82306; 82565; 82570; 83036; 83970; 84443; 84520

== ENCOUNTER → 2021-11-01 | Outpatient (CLI) | payer BC ==
[2021-11-01 15:21] LABS: African American GFR (CKD) 102.1 (60.0-200.0); Anion Gap 11.2 mmol/L (10.00-18.00); Blood Urea Nitrogen 11.7 mg/dL (9.0-27.0); Carbon Dioxide 26.5 mmol/L (20.0-27.5); Non-African American GFR(CKD) 88.1 (60.0-200.0); Potassium 4.5 mmol/L (3.5-5.5)
[2021-11-02 00:50] LABS: Microalbumin Creatinine Ratio <30 mg/g Creat (0-30)
== END | disposition home or self-care (01) ==
LOC: LABWHC1 11:21
PROVIDERS: ATTEND Family Medicine
DX: Z00.00 Encounter for general adult medical examination without abnormal findings (principal)
CPT/HCPCS: 36415; 80051; 82043; 82565; 82570; 83036; 84520

== ENCOUNTER → 2021-11-16 | Outpatient (CLI) | payer BC ==
--- NOTE | 2021-11-16 21:09 | SFUN ---
SLEEP CENTER FOLLOW UP NOTE DATE OF SERVICE: 11/16/2021 This 61-year-old gentleman has been followed in Sleep Center for treatment of obstructive sleep apnea-hypopnea syndrome. The patient continues to use his CPAP equipment every night for the whole night. He is getting his supplies on time. [place] Sleepiness Scale today is 3, which is normal. I checked his CPAP unit. Range of the pressure is 5 to 18. Usage is 30/30 nights and 28/30 nights for more than 4 hours, average usage 5.4 hours per night. Leak is 24 L/minute, which is borderline. Apnea-hypopnea index is 2.3, which is totally normal. During his previous visit, apnea-hypopnea index was slightly increased, and I increased the pressure in his CPAP unit. MEDICATIONS: 1. Metformin 500 mg twice a day. 2. Januvia 100 mg once a day. 3. 100 mg once a day. 4. Lisinopril/hydrochlorothiazide 20/25 mg once a day. 5. Niacin 500 mg once a day. 6. Simvastatin 20 mg once a day. 7. Vitamin D supplement. PHYSICAL EXAMINATION: GENERAL: Pleasant patient in no distress. VITAL SIGNS: BP 132/78, HR 82, RR 16, height 5 feet 8 inches, weight 248. The patient's weight increased by 5 pounds compared to his previous visit. Body mass index 37.1. Temperature 98.1, oxygen saturation at room air 96%. HEENT: PERRLA, EOMI, evaluation of oropharynx showed tongue protrudes midline. Low position of soft palate; Mallampati IV. NECK: Supple, no JVD. Thyroid is not palpable. LUNGS: Clear to percussion and to auscultation. Good air exchange. No wheezing or rhonchi. HEART: S1, S2 regular. No murmurs, gallops, or rubs. ABDOMEN: Obese. EXTREMITIES: No clubbing or cyanosis. 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 Cranial nerves 2 to 7 intact. There is no fasciculation or atrophy. noted. No focal deficits observed. IMPRESSION: 1. Obstructive sleep apnea-hypopnea syndrome. Patient demonstrated close to 100% compliance with treatment, benefitting from treatment. Normal respiration at present on CPAP after pressure was increased during the previous visit. 2. Obesity. 3. Hypertension. 4. Diabetes mellitus. 5. Hyperlipidemia. 6. Status post tonsillectomy. 7. 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 PLAN: 1. Patient will continue to use PAP equipment every night for the whole night. 2. Sleep hygiene with regular time in bed for at least 7-1/2 to 8 hours. 3. Precautions related to driving. No driving if feeling sleepiness. 4. I will maintain all necessary prescription for PAP supplies including mask, tube, filters. 5. Watching weight. 6. Follow-up visit in 6 months or earlier if patient has any problems. Thank you very much for allowing me to participate in the management of your patient. Sincerely, Akbar Cameron MD, PhD, FAASM Diplomat of [place] [employer] Sleep Medicine Board of [place] [employer] of Internal Medicine Psychic Reader of [facility] [place] MMKEELY / LILLIANA: [id number] /
== END ==
LOC: SLEEP 15:30
PROVIDERS: ATTEND Internal Medicine
DX: G47.33 Obstructive sleep apnea (adult) (pediatric) (principal); I10 Essential (primary) hypertension; E11.9 Type 2 diabetes mellitus without complications; E78.5 Hyperlipidemia, unspecified; Z90.09 Acquired absence of other part of head and neck; Z87.730 Personal history of (corrected) cleft lip and palate; Z99.89 Dependence on other enabling machines and devices; E66.9 Obesity, unspecified; Z68.37 Body mass index [BMI] 37.0-37.9, adult; Z79.84 Long term (current) use of oral hypoglycemic drugs; Z88.0 Allergy status to penicillin

== ENCOUNTER → 2022-01-12 | Outpatient (CLI) | payer BC ==
[2022-01-12 10:52] LABS: African American GFR (CKD) 104.2 (60.0-200.0); Blood Urea Nitrogen 13.2 mg/dL (9.0-27.0); Carbon Dioxide 24.7 mmol/L (20.0-27.5); Chloride 105 mmol/L (96-109); Chol/HDL Ratio 2.96 Ratio; LDL Cholesterol,Calculated 48.7 mg/dL (0.0-131.0); Non-African American GFR(CKD) 89.9 (60.0-200.0); Sodium 140 mmol/L (135-145)
== END | disposition home or self-care (01) ==
LOC: LABWHC1 07:04
PROVIDERS: ATTEND Family Medicine
DX: E11.9 Type 2 diabetes mellitus without complications (principal); E78.5 Hyperlipidemia, unspecified; I10 Essential (primary) hypertension
CPT/HCPCS: 36415; 80051; 80061; 82043; 82565; 82570; 83036; 84443; 84520

== ENCOUNTER → 2022-07-11 | Outpatient (CLI) | payer BC ==
--- NOTE | 2022-07-11 16:51 | P.PN ---
Subjective DATE: 07/11/2022 FOLLOW UP VISIT. Patient with obstructive sleep apnea hypopnea syndrome return to sleep center for follow-up visit. Information from previous visit have been reviewed. Patient is using PAP equipment every night for the whole night, getting PAP supplies in time. The patient does not have significant problems with the mask, PAP unit and humidification. [place] sleepiness scale is 6. I checked PAP unit. Air filter is in good shape. PAP unit pressure 5-18, average 15.1 cm H2O. Usage is 100 % for more then 4 hours, average 5.3 hours per night. Leak is 26 l/m, which is in acceptable range. Apnea Hypopnea Index is 3.9, which is normal. MEDICATIONS:1. Metformin 500 mg twice a day 2. Lisinopril 20 mg once a day 3. Niacin 500 mg once a day 4. Simvastatin 20 mg once a day 5. Ezetimibe 6. Aspirin During physical exam: GENERAL: A pleasant patient without any distress. VITAL SIGNS: BP 138/83, HR 80, RR 18, weight 245.8, temperature 97.5, oxygen saturation at room air 96 % . HEENT: PERRLA, EOMI.low position of soft palate, Mallapati 4 . NECK: Supple. No JVD. LUNGS: Clear to percussion and to auscultation. Good air exchange. No wheezing or rhonchi. HEART: S1, S2 regular. ABDOMEN: Soft and nontender. Slightly obese EXTREMITIES: No clubbing or cyanosis. DEVELOPMENT LEAD: Awake, alert, and oriented x3. No focal deficit. Impressions: 1. Obstructive sleep apnea-hypopnea syndrome. Patient demonstrated great compliance with treatment, benefiting from treatment. 2. Obesity, patient lost 3 pounds since previous visit. 3. Hypertension. 4. Diabetes mellitus. 5. Hyperlipidemia. 6. Status post tonsillectomy. 7. 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 Plan: 1. Continue using PAP equipment every night for the whole night. 2. To change air filter at least 1-2 times per month. 3. PAP unit should stay lower then position of the head. 4. Advised patient to remove all remaining water from humidifier canister daily and make it dry after each usage. Refill canister with fresh distilled water before each usage. 5. Sleep hygiene with regular time in bed for at least 8 hours. 6. Precautions related to driving. No driving if feel any sleepiness. 7. I will maintain prescription for PAP supplies including mask, tube, filters. 8. Follow up visit in 6 months or earlier if patient has any problems. 9. Watching and losing weight. Thank you very much for allowing me to participate in the management of your patient. Akbar Cameron MD, PhD, FAASM. Diplomat of [place] [employer], Sleep Medicine Board by [place] [employer] Medicine Traffic Controller Cable of [facility] [place]
== END ==
LOC: SLEEP 16:04
PROVIDERS: ATTEND Internal Medicine
DX: G47.33 Obstructive sleep apnea (adult) (pediatric) (principal); I10 Essential (primary) hypertension; E11.9 Type 2 diabetes mellitus without complications; E78.5 Hyperlipidemia, unspecified; Z90.89 Acquired absence of other organs; Z87.730 Personal history of (corrected) cleft lip and palate; Z99.89 Dependence on other enabling machines and devices; Z88.0 Allergy status to penicillin; Z79.899 Other long term (current) drug therapy; Z79.84 Long term (current) use of oral hypoglycemic drugs
CPT/HCPCS: 99212

== ENCOUNTER → 2022-07-27 | Outpatient (CLI) | payer BC ==
[2022-07-27 11:01] LABS: African American GFR (CKD) 106.5 (60.0-200.0); Blood Urea Nitrogen 14.3 mg/dL (9.0-27.0); Chloride 101 mmol/L (96-109); Chol/HDL Ratio 3.05 Ratio; LDL Cholesterol,Calculated 60.2 mg/dL (0.0-131.0); Non-African American GFR(CKD) 91.9 (60.0-200.0); Potassium 4.3 mmol/L (3.5-5.5); Sodium 140 mmol/L (135-145)
== END | disposition home or self-care (01) ==
LOC: LABWHC1 07:10
PROVIDERS: ATTEND Family Medicine
DX: E11.9 Type 2 diabetes mellitus without complications (principal); I10 Essential (primary) hypertension; Z79.899 Other long term (current) drug therapy
CPT/HCPCS: 36415; 80051; 80061; 82565; 83036; 84443; 84520

== ENCOUNTER → 2023-01-23 | Outpatient (CLI) | payer BC ==
--- NOTE | 2023-01-23 16:25 | P.PN ---
Subjective DATE: 01/23/2023 FOLLOW UP VISIT. Patient with obstructive sleep apnea hypopnea syndrome return to sleep center for follow-up visit. Information from previous visit have been reviewed. Patient is using PAP equipment every night for the whole night, getting PAP supplies in time. The patient does not have significant problems with the mask, PAP unit and humidification. [place] sleepiness scale is 3, which is normal. I checked information from PAP unit. PAP unit pressure 5-18, average 16.4 cm H2O. Usage is 100 % for more then 4 hours, average 5 hours per night. Leak is 35 l/m, which is in acceptable range. Apnea Hypopnea Index is 5.6, which is slightly above normal, during previous visit it was 3.9. MEDICATIONS:1. Metformin 500 mg twice a day 2. Lisinopril/hydrochlorothiazide 20-25 mg 2 tablets once a day 3. Simvastatin 20 mg once a day 4. Ezetimibe 10 mg once a day 5.. Rubelsus 40 mg once a day 6. Niacin 500 mg once a day During physical exam: GENERAL: A pleasant patient without any distress. VITAL SIGNS: BP 117/80, HR 86, RR 16, weight 249.4, temperature 97.9, oxygen saturation at room air 95 % . HEENT: PERRLA, EOMI.low position of soft palate, Mallapati 4 . NECK: Supple. No JVD. LUNGS: Clear to percussion and to auscultation. Good air exchange. No wheezing or rhonchi. HEART: S1, S2 regular. ABDOMEN: Soft and nontender. Slightly obese EXTREMITIES: No clubbing or cyanosis. SEMICONDUCTOR PACKAGES LEAK TESTER: Awake, alert, and oriented x3. No focal deficit. I adjusted pressure in CPAP unit up to the range 5-19 cm of water. Impressions: 1. Obstructive sleep apnea-hypopnea syndrome. Patient demonstrated great compliance with treatment, benefiting from treatment. 2. Obesity, patient increased his weight on 4 pounds comparing to the previous visit. 3. Hypertension. 4. Diabetes mellitus. 5. Hyperlipidemia. 6. Status post tonsillectomy. 7. 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 Plan: 1. Continue using PAP equipment every night for the whole night. 2. To change air filter at least 1-2 times per month. 3. PAP unit should stay lower then position of the head. 4. Advised patient to remove all remaining water from humidifier canister daily and make it dry after each usage. Refill canister with fresh distilled water before each usage. 5. Sleep hygiene with regular time in bed for at least 8 hours. 6. Precautions related to driving. No driving if feel any sleepiness. 7. I will maintain prescription for PAP supplies including mask, tube, filters. 8. Watching weight and losing. 9. Follow up visit in 6 months or earlier if patient has any problems. Thank you very much for allowing me to participate in the management of your patient. Akbar Cameron MD, PhD, FAASM. Diplomat of [place] [employer] Sleep Medicine, Sleep Medicine Board by [place] [employer] Medicine Distribution Dispatcher of [facility] [place]
== END ==
LOC: SLEEP 15:40
PROVIDERS: ATTEND Internal Medicine
DX: G47.33 Obstructive sleep apnea (adult) (pediatric) (principal); Z99.89 Dependence on other enabling machines and devices; E11.9 Type 2 diabetes mellitus without complications; E66.9 Obesity, unspecified; E78.5 Hyperlipidemia, unspecified; I10 Essential (primary) hypertension; Z79.84 Long term (current) use of oral hypoglycemic drugs; Z79.899 Other long term (current) drug therapy; Z98.890 Other specified postprocedural states; Z88.0 Allergy status to penicillin
CPT/HCPCS: 99212

== ENCOUNTER → 2023-07-26 | Outpatient (CLI) | payer BC ==
[2023-07-26 11:06] LABS: HCT 43.8 % (39.6-50.0); HGB 14.8 d/dL (13.0-17.0); MCH 30.3 pg (27.0-32.0); MCHC 33.8 d/dL (32.0-37.0); MCV 89.6 FL (80.0-97.0); Mean Platelet Volume 10.1 FL (9.5-12.2); NRBC Per 100 WBC 0 X 10*3/uL (0.00-0.01); Platelet Count 198 X 10*3/uL (140-440); RBC 4.89 X 10*6/uL (4.40-5.60); RDW 13.7 % (11.5-14.5); WBC 5.52 X 10*3/uL (4.50-10.00)
[2023-07-26 11:35] LABS: ALT 40 U/L (10-49); AST 26 U/L (14-35); Albumin 4.3 d/dL (3.8-4.9); Albumin/Globulin Ratio 2.26 Ratio (1.60-3.17); Alkaline Phosphatase 58 U/L (41-126); BUN/Creat Ratio 14.89 Ratio (12.00-20.00); Blood Urea Nitrogen 13.4 mg/dL (9.0-27.0); Calcium 9.7 mg/dL (8.7-10.3); Carbon Dioxide 35.3 mmol/L (21.6-31.8); Chloride 106 mmol/L (96-109); Chol/HDL Ratio 3.44 Ratio; Globulin 1.9 d/dL (1.6-3.3); Glucose 126 mg/dL (70-110); LDL Cholesterol,Calculated 45.8 mg/dL (0.0-131.0); Potassium 4.1 mmol/L (3.5-5.5); Sodium 144 mmol/L (135-145); Total Bilirubin 0.6 mg/dL (0.3-1.2); Total Protein 6.2 d/dL (6.2-8.2)
[2023-07-26 11:36] LABS: Prostate Specific Antigen 1.61 ng/mL (0.000-4.500)
== END | disposition home or self-care (01) ==
LOC: LABWHC1 06:47
PROVIDERS: ATTEND Family Medicine
DX: E11.9 Type 2 diabetes mellitus without complications (principal); R97.20 Elevated prostate specific antigen [PSA]; Z79.899 Other long term (current) drug therapy
CPT/HCPCS: 36415; 80053; 80061; 82043; 82570; 83036; 84153; 84403; 84443; 85027

== ENCOUNTER → 2023-08-07 | Outpatient (CLI) | payer BC ==
--- NOTE | 2023-08-07 14:40 | P.PN ---
Subjective DATE: 08/07/2023 FOLLOW UP VISIT. Patient with obstructive sleep apnea hypopnea syndrome return to sleep center for follow-up visit. Information from previous visit have been reviewed. Patient is using PAP equipment every night for the whole night, getting PAP supplies in time. The patient does not have significant problems with the mask, PAP unit and humidification. [place] sleepiness scale is 7, which is normal. I checked information from PAP unit and discussed it with patient in details. PAP unit pressure 5-19, average 17.2 cm H2O. Usage is 100 % for more then 4 hours, average 5.7 hours per night. Leak is 12 l/m, which is in acceptable range. Apnea Hypopnea Index is 5.0, which is normal. MEDICATIONS:1. Lisinopril/hydrochlorothiazide 20-25 mg twice a day 2. Metformin 500 mg twice a day 3. Simvastatin 20 mg once a day 4. Niacin 500 mg once a day 5. Ezetimibe 10 mg once a day 6. Rubelsus 40 mg once a day During physical exam: GENERAL: A pleasant patient without any distress. VITAL SIGNS: BP 147/86, HR 91, RR 18, weight 241.8, temperature 98.0, oxygen saturation at room air 96 % . HEENT: PERRLA, EOMI.low position of soft palate, Mallapati 4 . NECK: Supple. No JVD. LUNGS: Clear to percussion and to auscultation. Good air exchange. No wheezing or rhonchi. HEART: S1, S2 regular. ABDOMEN: Soft and nontender. Slightly obese EXTREMITIES: No clubbing or cyanosis. TREE EXPERT: Awake, alert, and oriented x3. No focal deficit. Impressions: 1. Obstructive sleep apnea-hypopnea syndrome. Patient demonstrated great compliance with treatment, benefiting from treatment. 2. Obesity, patient lost 8 pounds comparing to the previous visit. 3. Hypertension. 4. Diabetes mellitus. 5. Hyperlipidemia. 6. Status post surgical treatment for cleft palate in [place]. 7. Status post tonsillectomy. Plan: 1. Continue using PAP equipment every night for the whole night. 2. To change air filter at least 1-2 times per month. 3. PAP unit should stay lower then position of the head. 4. Advised patient to remove all remaining water from humidifier canister daily and make it dry after each usage. Refill canister with fresh distilled water before each usage. 5. Sleep hygiene with regular time in bed for at least 8 hours. 6. Precautions related to driving. No driving if feel any sleepiness. 7. I will maintain prescription for PAP supplies including mask, tube, filters. 8. Follow up visit in 6 months or earlier if patient has any problems. 9. Watching and losing weight. Thank you very much for allowing me to participate in the management of your patient. Akbar Cameron MD, PhD, FAASM. Diplomat of [place] [employer], Sleep Medicine Board by [place] [employer] Greeting Card Maker of [facility] [place]
== END ==
LOC: 3 N SLEEP 14:16
PROVIDERS: ATTEND Internal Medicine
DX: G47.33 Obstructive sleep apnea (adult) (pediatric) (principal); E66.9 Obesity, unspecified; E11.9 Type 2 diabetes mellitus without complications; E78.5 Hyperlipidemia, unspecified; I10 Essential (primary) hypertension; Z79.84 Long term (current) use of oral hypoglycemic drugs; Z79.899 Other long term (current) drug therapy; Z98.890 Other specified postprocedural states; Z90.89 Acquired absence of other organs; Z99.89 Dependence on other enabling machines and devices; Z88.0 Allergy status to penicillin; Z79.82 Long term (current) use of aspirin
CPT/HCPCS: 99212

== ENCOUNTER → 2023-10-25 | Outpatient (CLI) | payer BC ==
[2023-10-25 11:18] LABS: HCT 44.4 % (39.6-50.0); HGB 15.1 g/dL (13.0-17.0); MCH 29.9 pg (27.0-32.0); MCV 87.9 FL (80.0-97.0); Mean Platelet Volume 9.8 FL (9.5-12.2); NRBC Per 100 WBC 0 X 10*3/uL (0.00-0.01); Platelet Count 187 X 10*3/uL (140-440); RBC 5.05 X 10*6/uL (4.40-5.60); RDW 13.9 % (11.5-14.5); WBC 5.77 X 10*3/uL (4.50-10.00)
[2023-10-25 11:37] LABS: ALT 30 U/L (10-49); AST 26 U/L (14-35); Albumin 4.3 g/dL (3.8-4.9); Albumin/Globulin Ratio 2.05 Ratio (1.60-3.17); Alkaline Phosphatase 58 U/L (41-126); Blood Urea Nitrogen 13.9 mg/dL (9.0-27.0); Calcium 9.4 mg/dL (8.7-10.3); Carbon Dioxide 27.6 mmol/L (21.6-31.8); Chloride 103 mmol/L (96-109); Chol/HDL Ratio 3.01 Ratio; Globulin 2.1 g/dL (1.6-3.3); Glucose 114 mg/dL (70-110); LDL Cholesterol,Calculated 53.5 mg/dL (0.0-131.0); Potassium 4.3 mmol/L (3.5-5.5); Prostate Specific Antigen 1.31 ng/mL (0.000-4.500); Sodium 140 mmol/L (135-145); Total Bilirubin 0.6 mg/dL (0.3-1.2); Total Protein 6.4 g/dL (6.2-8.2)
== END | disposition home or self-care (01) ==
LOC: LABWHC1 06:56
PROVIDERS: ATTEND Family Medicine
DX: E11.9 Type 2 diabetes mellitus without complications (principal); R97.20 Elevated prostate specific antigen [PSA]; Z79.899 Other long term (current) drug therapy
CPT/HCPCS: 36415; 80053; 80061; 82043; 82570; 83036; 84153; 84443; 85027

== ENCOUNTER → 2024-03-11 | Outpatient (CLI) | payer BC ==
[2024-03-11 15:02] VITALS: BP 129/78; PULSE 94; RESP 16; TEMP 97.5
--- NOTE | 2024-03-11 16:25 | P.PROGSL ---
Subjective DATE: 03/11/2024 FOLLOW UP VISIT. Patient with obstructive sleep apnea hypopnea syndrome return to sleep center for follow-up visit. Information from previous visit have been reviewed. Patient is using PAP equipment every night for the whole night, getting PAP supplies in time. The patient does not have significant problems with the mask, PAP unit and humidification. [place] sleepiness scale is 4. I checked information from PAP unit. PAP unit pressure 5-19, average 13.1 cm H2O. Usage is 100% for more then 4 hours, average 7 hours per night. Leak is 13 l/m, which is in acceptable range. Apnea Hypopnea Index is 1.9, which is normal. MEDICATIONS:1. Please see below During physical exam: GENERAL: A pleasant patient without any distress. VITAL SIGNS: Weight 233 pounds BMI 36.2. HEENT: PERRLA, EOMI.low position of soft palate, Mallapati 4 . NECK: Supple. No JVD. LUNGS: Clear to percussion and to auscultation. Good air exchange. No wheezing or rhonchi. HEART: S1, S2 regular. ABDOMEN: Soft and nontender.[] EXTREMITIES: No clubbing or cyanosis. 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 No focal deficit. Impressions: 1. Obstructive sleep apnea-hypopnea syndrome. Patient demonstrated great compliance with treatment, benefiting from treatment. 2. Obesity, patient lost 8 pounds comparing with previous visit, present body mass index 36.2. 3. Hypertension. 4. Diabetes mellitus. 5. Hyperlipidemia. 6. Status post tonsillectomy. 7. 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 Plan: 1. Continue using PAP equipment every night for the whole night. 2. To change air filter at least 1-2 times per month. 3. PAP unit should stay lower then position of the head. 4. Advised patient to remove all remaining water from humidifier canister daily and make it dry after each usage. Refill canister with fresh distilled water before each usage. 5. Sleep hygiene with regular time in bed for at least 8 hours. 6. Precautions related to driving. No driving if feel any sleepiness. 7. I will maintain prescription for PAP supplies including mask, tube, filters. 8. Watching and continue losing weight. 9. Follow up visit in 6 months or earlier if patient has any problems. Thank you very much for allowing me to participate in the management of your patient. Akbar Cameron MD, PhD, FAASM. Diplomat of [place] [employer], Sleep Medicine Board by [employer] [employer]ompom Maker of [facility] [place] Objective - Vital Signs Vital Signs: Vital Signs Temp 97.5 F L 03/11/24 15:01 Pulse 94 03/11/24 15:01 Resp 16 03/11/24 15:01 BP 129/78 03/11/24 15:01 Pulse Ox 96 03/11/24 15:01 FiO2 Home Medications: Home Medications Medication Instructions Recorded Confirmed Type Ergocalciferol (Vitamin D2) 50,000 unit PO KUNZ 12/23/18 03/11/24 History [Vitamin D2] Ezetimibe [Zetia] 10 mg PO DAILY 12/23/18 03/11/24 History Lisinopril-Hctz 20-25 mg 2 tab PO DAILY 12/23/18 03/11/24 History [Zestoretic 20-25] Niacin [Niacin ER] 500 mg PO HS 12/23/18 03/11/24 History Simvastatin [Zocor] 20 mg PO DAILY 12/23/18 03/11/24 History metFORMIN HCL [Glucophage] 500 mg PO BID 12/23/18 03/11/24 History sitaGLIPtin [Januvia] 100 mg PO DAILY 12/23/18 04/20/19 History Aspirin 325 mg PO HS 04/10/19 03/11/24 History Docusate [Colace] 100 mg PO DAILY PRN 04/10/19 04/20/19 History Ibuprofen [Motrin] 600 mg PO Q6HR PRN 04/10/19 03/11/24 History Docusate [Colace] 100 mg PO DAILY #30 capsule 04/21/19 Rx HYDROcodone/APAP 7.5-325MG [[place] 1 - 2 each PO Q6HR PRN #40 tab 04/21/19 Rx 7.5] Semaglutide [Rybelsus] 14 mg PO DAILY 03/11/24 03/11/24 History
== END ==
LOC: 3 N SLEEP 14:35
PROVIDERS: ATTEND Internal Medicine
DX: G47.33 Obstructive sleep apnea (adult) (pediatric) (principal); E66.9 Obesity, unspecified; I10 Essential (primary) hypertension; E11.9 Type 2 diabetes mellitus without complications; E78.5 Hyperlipidemia, unspecified; Z98.890 Other specified postprocedural states; Z90.89 Acquired absence of other organs; Z99.89 Dependence on other enabling machines and devices; Z88.0 Allergy status to penicillin; Z79.84 Long term (current) use of oral hypoglycemic drugs; Z79.899 Other long term (current) drug therapy; Z68.36 Body mass index [BMI] 36.0-36.9, adult
CPT/HCPCS: 99212

== ENCOUNTER → 2024-10-28 | Outpatient (CLI) | payer BC ==
[2024-10-28 14:34] VITALS: BP 143/81; PULSE 104; RESP 18; TEMP 97.4
--- NOTE | 2024-10-28 15:39 | P.PROGSL ---
Subjective DATE: 10/28/2024 FOLLOW UP VISIT. Patient with obstructive sleep apnea hypopnea syndrome return to sleep center for follow-up visit. Information from previous visit have been reviewed. Patient is using PAP equipment every night for the whole night, getting PAP supplies in time. The patient does not have significant problems with the mask, PAP unit and humidification. [place] sleepiness scale is 4, which is normal. I checked information from PAP unit. PAP unit is old and noisy. PAP unit pressure 5-19, average 16.3 cm H2O. Usage is 100% for more then 4 hours, average 6.5 hours per night. Leak is 16 l/m, which is in acceptable range. Apnea Hypopnea Index is 4.2, which is normal. MEDICATIONS have been reviewed, please see below. During physical exam: GENERAL: A pleasant patient without any distress. VITAL SIGNS: Please see below, weight is 253.8 lbs. HEENT: PERRLA, EOMI.low position of soft palate, Mallapati 4 . NECK: Supple. No JVD. LUNGS: Clear to percussion and to auscultation. Good air exchange. No wheezing or rhonchi. HEART: S1, S2 regular. ABDOMEN: Soft and nontender.[] EXTREMITIES: No clubbing or cyanosis. CARRY ALL DRIVER: Awake, alert, and oriented x3. No focal deficit. Impressions: 1. Obstructive sleep apnea-hypopnea syndrome. Patient demonstrated great compliance with treatment, benefiting from treatment. 2. Obesity, BMI 39.0, patient increased weight on 20 pounds comparing with previous visit. 3. Hypertension. 4. Diabetes mellitus. 5. Hyperlipidemia. 6. Status post tonsillectomy. 7. 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 Plan: 1. Continue using PAP equipment every night for the whole night. Prescription to replace CPAP unit, because CPAP unit is old, cover for air filter broken, noisy. 2. Sleep hygiene with regular time in bed for at least 7.5-8 hours 3. PAP unit should stay lower then position of the head. 4. Advised patient to remove all remaining water from humidifier canister daily and make it dry after each usage. Refill canister with fresh distilled water before each usage. 5. Watching weight. 6. Precautions related to driving. No driving if feel any sleepiness. 7. I will maintain prescription for PAP supplies including mask, tube, filters. 8. Follow up visit in 1-3 months after patient will get new CPAP unit to document compliance with treatment and make any necessary adjustments. Thank you very much for allowing me to participate in the management of your patient. Akbar Cameron MD, PhD, FAASM. Diplomat of [place] [employer], Sleep Medicine Board by [place] [employer] Salesperson [employer] [facility] [place] [facility] [place] Objective - Vital Signs Vital Signs: Vital Signs Temp 97.4 F L 10/28/24 14:33 Pulse 104 H 10/28/24 14:33 Resp 18 10/28/24 14:33 BP 143/81 10/28/24 14:33 Pulse Ox 96 10/28/24 14:33 FiO2 Intake & Output 10/27/24 10/28/24 10/28/24 18:59 06:59 18:59 Weight 114.986 kg Home Medications: Home Medications Medication Instructions Recorded Confirmed Type Ergocalciferol (Vitamin D2) 50,000 unit PO KUNZ 12/23/18 03/11/24 History [Vitamin D2] Ezetimibe [Zetia] 10 mg PO DAILY 12/23/18 10/28/24 History Lisinopril-Hctz 20-25 mg 2 tab PO DAILY 12/23/18 10/28/24 History [Zestoretic 20-25] Niacin [Niacin ER] 500 mg PO HS 12/23/18 10/28/24 History Simvastatin [Zocor] 20 mg PO DAILY 12/23/18 10/28/24 History metFORMIN HCL [Glucophage] 500 mg PO BID 12/23/18 10/28/24 History sitaGLIPtin [Januvia] 100 mg PO DAILY 12/23/18 04/20/19 History Aspirin 325 mg PO HS 04/10/19 03/11/24 History Docusate [Colace] 100 mg PO DAILY PRN 04/10/19 04/20/19 History Ibuprofen [Motrin] 600 mg PO Q6HR PRN 04/10/19 03/11/24 History Docusate [Colace] 100 mg PO DAILY #30 capsule 04/21/19 Rx HYDROcodone/APAP 7.5-325MG [[place] 1 - 2 each PO Q6HR PRN #40 tab 04/21/19 Rx 7.5] Semaglutide [Rybelsus] 14 mg PO DAILY 03/11/24 03/11/24 History Dulaglutide [Trulicity] 0.75 mg SQ WEEKLY 10/28/24 10/28/24 History tadalafiL 5 mg PO DAILY 10/28/24 10/28/24 History
== END ==
LOC: 3 N SLEEP 14:14
PROVIDERS: ATTEND Internal Medicine
DX: G47.33 Obstructive sleep apnea (adult) (pediatric) (principal); E66.9 Obesity, unspecified; I10 Essential (primary) hypertension; E11.9 Type 2 diabetes mellitus without complications; E78.5 Hyperlipidemia, unspecified; Z68.39 Body mass index [BMI] 39.0-39.9, adult; Z90.89 Acquired absence of other organs; Z88.0 Allergy status to penicillin
CPT/HCPCS: 99212

== ENCOUNTER → 2025-03-16 | Outpatient (CLI) | payer BC ==
[2025-03-16 15:10] LABS: Basophils # (A) 0.05 X 10*3/uL (0.00-0.10); Basophils % (A) 0.9 %; Eosinophils # (A) 0.06 X 10*3/uL (0.04-0.35); Eosinophils % (A) 1.1 %; HCT 43.9 % (39.6-50.0); HGB 14.7 g/dL (13.0-17.0); Lymphocytes # (A) 1.95 X 10*3/uL (0.90-5.00); Lymphocytes % (A) 36.1 %; MCH 30.1 pg (27.0-32.0); MCHC 33.5 g/dL (32.0-37.0); MCV 89.8 FL (80.0-97.0); Monocytes # (A) 0.54 X 10*3/uL (0.20-1.00); NRBC Per 100 WBC 0 X 10*3/uL (0.00-0.01); Neutrophils # (A) 2.75 X 10*3/uL (1.80-7.70); Platelet Count 200 X 10*3/uL (140-440); RBC 4.89 X 10*6/uL (4.40-5.60); RDW 14.3 % (11.5-14.5)
[2025-03-16 16:00] LABS: ALT 42 U/L (10-49); AST 48 U/L (14-35); Albumin 4.4 g/dL (3.8-4.9); Alkaline Phosphatase 55 U/L (41-126); BUN/Creat Ratio 17.44 Ratio (12.00-20.00); Blood Urea Nitrogen 15.7 mg/dL (9.0-27.0); Calcium 9.6 mg/dL (8.7-10.3); Carbon Dioxide 25.3 mmol/L (21.6-31.8); Chloride 100 mmol/L (96-109); Chol/HDL Ratio 3.19 Ratio; Glucose 115 mg/dL (70-110); Potassium 3.9 mmol/L (3.5-5.5); Sodium 138 mmol/L (135-145); Total Protein 6.4 g/dL (6.2-8.2)
== END | disposition home or self-care (01) ==
LOC: LABWHC1 11:06
PROVIDERS: ATTEND Family Medicine
DX: E11.9 Type 2 diabetes mellitus without complications (principal); Z79.899 Other long term (current) drug therapy
CPT/HCPCS: 36415; 80053; 80061; 83036; 84443; 85025

== ENCOUNTER → 2025-04-21 | Outpatient (CLI) | payer BC ==
[2025-04-21 15:49] VITALS: BP 103/61; PULSE 110; RESP 18; TEMP 97.9
--- NOTE | 2025-04-21 16:06 | P.PROGSL ---
Subjective DATE: 12/20/2024 FOLLOW UP VISIT. Patient with obstructive sleep apnea hypopnea syndrome return to sleep center for follow-up visit. Information from previous visit have been reviewed. This is first visit after patient received new CPAP unit. Patient is using PAP equipment every night for the whole night, getting PAP supplies in time. The patient does not have significant problems with the mask, PAP unit and humidification. [place] sleepiness scale is 3, which is normal. I checked information from PAP unit. PAP unit pressure 5-19, average 15.8 cm H2O. Usage is 100% for more then 4 hours, average 6.3 hours per night. Leak is 10.6 l/m, which is in acceptable range. Apnea Hypopnea Index is 3.7, which is normal. MEDICATIONS have been reviewed, please see below. During physical exam: GENERAL: A pleasant patient without any distress. VITAL SIGNS: Please see below, weight is 240.6 lbs. HEENT: PERRLA, EOMI.low position of soft palate, Mallapati 4 . NECK: Supple. No JVD. LUNGS: Clear to percussion and to auscultation. Good air exchange. No wheezing or rhonchi. HEART: S1, S2 regular. ABDOMEN: Soft and nontender. Slightly obese EXTREMITIES: No clubbing or cyanosis. EVENT PLANNING MANAGER: Awake, alert, and oriented x3. No focal deficit. Impressions: 1. Obstructive sleep apnea-hypopnea syndrome. Patient demonstrated great compliance with treatment, benefiting from treatment. 2. Obesity, patient lost 13 pounds comparing with previous visit. 3. Hypertension. 4. Diabetes mellitus. 5. Hyperlipidemia. 6. 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 7. Status post tonsillectomy. Plan: 1. Continue using PAP equipment every night for the whole night. 2. Sleep hygiene with regular time in bed for at least 7.5-8 hours 3. PAP unit should stay lower then position of the head. 4. Advised patient to remove all remaining water from humidifier canister daily and make it dry after each usage. Refill canister with fresh distilled water before each usage. 5. Watching and continue losing weight. 6. Precautions related to driving. No driving if feel any sleepiness. 7. I will maintain prescription for PAP supplies including mask, tube, filters. 8. Follow up visit in 8 months or earlier if patient has any problems. Thank you very much for allowing me to participate in the management of your patient. Akbar Cameron MD, PhD, FAASM. Diplomat of [place] [employer], Sleep Medicine Board by [employer] Mincemeat Maker of [facility] [place] Objective - Vital Signs Vital Signs: Vital Signs Temp 97.9 F 04/21/25 15:44 Pulse 110 H 04/21/25 15:44 Resp 18 04/21/25 15:44 BP 103/61 04/21/25 15:44 Pulse Ox 97 04/21/25 15:44 FiO2 Home Medications: Home Medications Medication Instructions Recorded Confirmed Type Ergocalciferol (Vitamin D2) 50,000 unit PO KUNZ 12/23/18 03/11/24 History [Vitamin D2] Ezetimibe [Zetia] 10 mg PO DAILY 12/23/18 10/28/24 History Lisinopril-Hctz 20-25 mg 2 tab PO DAILY 12/23/18 10/28/24 History [Zestoretic 20-25] Niacin [Niacin ER] 500 mg PO HS 12/23/18 10/28/24 History Simvastatin [Zocor] 20 mg PO DAILY 12/23/18 10/28/24 History metFORMIN HCL [Glucophage] 500 mg PO BID 12/23/18 10/28/24 History sitaGLIPtin [Januvia] 100 mg PO DAILY 12/23/18 04/20/19 History Aspirin 325 mg PO HS 04/10/19 03/11/24 History Docusate [Colace] 100 mg PO DAILY PRN 04/10/19 04/20/19 History Ibuprofen [Motrin] 600 mg PO Q6HR PRN 04/10/19 03/11/24 History Docusate [Colace] 100 mg PO DAILY #30 capsule 04/21/19 Rx HYDROcodone/APAP 7.5-325MG [[place] 1 - 2 each PO Q6HR PRN #40 tab 04/21/19 Rx 7.5] Semaglutide [Rybelsus] 14 mg PO DAILY 03/11/24 03/11/24 History Dulaglutide [Trulicity] 0.75 mg SQ WEEKLY 10/28/24 10/28/24 History tadalafiL 5 mg PO DAILY 10/28/24 10/28/24 History
== END ==
LOC: 3 N SLEEP 15:37
PROVIDERS: ATTEND Internal Medicine
DX: G47.33 Obstructive sleep apnea (adult) (pediatric) (principal); E66.9 Obesity, unspecified; I10 Essential (primary) hypertension; E11.9 Type 2 diabetes mellitus without complications; E78.5 Hyperlipidemia, unspecified; Z87.730 Personal history of (corrected) cleft lip and palate; Z90.89 Acquired absence of other organs; Z88.0 Allergy status to penicillin
CPT/HCPCS: 99212